=== PATIENT | male | born 1960 | race Two or more races ===

== ENCOUNTER 2024-01-20 13:30 | Outpatient (RCR) | payer MEDICAID, SELFPAY ==
--- NOTE | 2024-01-18 15:14 | PT.ODAYNRPT ---
PT Outpatient Daily Note OP Daily Note Outpatient Physical Therapy Treatment Date: 01/18/24 Visit Reasons: Left hip/Low back pain Subjective: Pt reports low back had improved, no complaints today. Objective: Please see flow sheet for ther ex list. Assessment: Decrease c/o pain during ther ex indicating progress. Plan: Continue with POC. progress per pt tolerance. Length of Time (minutes) of Treatment: 30 Minutes Procedure Charges Therapeutic Exercise 30 minutes: Yes
--- NOTE | 2024-01-20 15:22 | PT.ODAYNRPT ---
PT Outpatient Daily Note OP Daily Note Outpatient Physical Therapy Treatment Date: 01/20/24 Visit Reasons: Left hip/Low back pain Subjective: Pt's back and hip is better and walking more with less pain. Pt is happy is progress so far Objective: Please see flow chart for list of ther ex performed Assessment: progressing with overall mobility and added more hip strengthening exercises with good tolerance Plan: Continue with PT Length of Time (minutes) of Treatment: 30 Minutes Procedure Charges Therapeutic Exercise 30 minutes: Yes
--- NOTE | 2024-02-23 10:13 | PT.ODS1RPT ---
PT OP Progress/Discharge Note Date of Service: 02/23/24 Progress Note/DC Note Progress Note/Discharge Note: DC Note Patient Information Visit Reasons: Left hip/Low back pain Service Discharge Date: 02/23/24 Status Assessment: Pt has been seen for 11 visits (eval + 10 visits). Pt last treated on 01/20/24. Pt has been contact regarding follow up appts without success. At this time Pt will be d/c from care due to non-compliance per attendance policy. Pt did not meet set goals in therapy; thank you for your referrals.
== END 2024-02-12 23:59 | disposition home or self-care (01) ==
LOC: CPTX 13:30
PROVIDERS: PCP Physician Assistant; Referring Provider Physician Assistant; Visit Provider Physician Assistant
DX: M54.50 Low back pain, unspecified (principal); M25.552 Pain in left hip; S79.912D Unspecified injury of left hip, subsequent encounter; W19.XXXD Unspecified fall, subsequent encounter
CPT/HCPCS: 97110

== ENCOUNTER 2024-02-28 12:05 | Emergency (ER) | payer MEDICAID, SELFPAY ==
[2024-02-28 12:06] VITALS: BMI 31.8
[2024-02-28 12:47] VITALS: BP 149/90; PULSE 87; RESP 19; TEMP 37.2; O2SAT 99
--- NOTE | 2024-02-28 12:58 | XR_ITS ---
Examination: CT brain head without contrast. 2-D sagittal coronal reconstructions Date and time of exam:February 28, 2024 1410 hours INDICATIONS: Worsening headaches with nose bleeding beginning 4 days ago CTDI: vol (mGy):52.2 DLP: (mGycm):1071 Technique: Multiple CT axial sections of the brain have been obtained, 5 mm slice thickness. Contrast has not been administered. 2-D sagittal, coronal reconstructions have been obtained Low dose protocols were performed. One or more of the following dose reduction techniques were used; automated exposure control, adjustment of the mA and/or KV according to patient size, use of iterative reconstruction technique. Findings: No significant ventricular enlargement. Intra-axial or extra-axial hemorrhage density is not seen. No mass effect or midline shift Basal cisterns are not remarkable. Fourth ventricle is midline. Cranial vault intact. Impression: Negative for acute hemorrhage, mass effect or midline shift Chronic prominent left maxillary sinusitis Marked hypertrophy inferior nasal turbinates
--- NOTE | 2024-02-28 12:58 | PD.EDRME ---
Rapid Medical Screening Exam RME Arrival date/time: 02/28/24 12:05 63-year-old male presents the emergency department complains of a 4-day history of headache and nosebleeds Chief Complaint: Headache Time Seen by Provider: 02/28/24 12:53 Vital signs: Vital Signs Temperature 99 F 02/28/24 12:47 Pulse Rate 87 02/28/24 12:47 Respiratory Rate 19 02/28/24 12:47 Blood Pressure 149/90 H 02/28/24 12:47 Pulse Oximetry (%) 99 02/28/24 12:47 Oxygen Delivery Method Room Air 02/28/24 12:47
[2024-02-28 13:13] LABS: Basophils # (Auto) 0.1 Thou/mm3 (0.0-0.2); Basophils % (Auto) 0 % (0-2.5); Eosinophils # (Auto) 0.2 Thou/mm3 (0.0-0.5); Eosinophils % (Auto) 2 % (0-10); Hematocrit 46.3 % (41.0-53.0); Hemoglobin 16.2 g/dL (13.5-16.0); Immature Granulocytes % (Auto) 0 % (0-0); Immature Granulocytes Auto 0.04 Thou/mm3 (0.00-0.00); Lymphocytes # (Auto) 3.4 Thou/mm3 (1.0-4.8); Lymphocytes % (Auto) 25 % (10-50); Mean Corpuscular Hemoglobin 29.4 pg (25.0-35.0); Mean Corpuscular Volume 84 fL (80-100); Monocytes # (Auto) 1.1 Thou/mm3 (0.0-0.8); Monocytes % (Auto) 8 % (0-12); Neutrophils # (Auto) 8.7 Thou/mm3 (1.8-7.7); Neutrophils % (Auto) 65 % (37-80); Nucleated Red Blood Cell % 0 /100 WBC (0); Platelet Count 273 Thou/mm3 (140-440); RDW Standard Deviation 36.9 fL (35.1-43.9); Red Blood Count 5.51 Miln/mm3 (4.50-5.90); White Blood Count 13.5 Thou/mm3 (3.8-10.6)
[2024-02-28 13:29] LABS: Partial Thromboplastin Time 28.2 Seconds (22.0-36.0); Prothrombin Time 10.7 Seconds (9.0-12.2)
[2024-02-28 13:35] LABS: Alanine Aminotransferase 33 U/L (10-49); Albumin, Serum 4.6 gm/dL (3.4-4.8); Albumin/Globulin Ratio 1.4 (1.2-2.2); Alkaline Phosphatase 142 U/L (46-116); Anion Gap 9 (7-16); Aspartate Amino Transferase 22 U/L (0-34); BUN/Creatinine Ratio 12 Ratio (12-20); Bilirubin,Total 0.9 mg/dL (0.3-1.2); Blood Urea Nitrogen 13 mg/dL (9-23); Calcium 10.3 mg/dL (8.3-10.6); Calcium (Corrected) 10.3 mg/dL (8.5-10.1); Carbon Dioxide 26.5 mMol/L (20.0-31.0); Chloride 107 mMol/L (98-107); Creatinine (Component) 1.1 mg/dL (0.6-1.3); Estimated Creatinine Clearance 62.5 mL/min (>60); Globulin 3.2 gm/dL (2.3-3.5); Glucose 114 mg/dL (74-106); Osmolality,Calculated 284 (275-295); Potassium 4.1 mMol/L (3.4-5.1); Sodium 142 mMol/L (136-145); Total Protein 7.8 gm/dL (5.7-8.2); eGFR > 60 See Note
[2024-02-28 19:11] VITALS: BP 160/94; PULSE 81; RESP 18; TEMP 36.9; O2SAT 96
--- NOTE | 2024-02-28 19:29 | PD.EDRME ---
Rapid Medical Screening Exam RME Arrival date/time: 02/28/24 12:05 02/28/24 12:05 63-year-old male presents the emergency department complains of a 4-day history of headache and nosebleeds Chief Complaint: Headache Time Seen by Provider: 02/28/24 12:53 Vital signs: Vital Signs Temperature 99 F 02/28/24 12:47 Pulse Rate 87 02/28/24 12:47 Respiratory Rate 19 02/28/24 12:47 Blood Pressure 149/90 H 02/28/24 12:47 Pulse Oximetry (%) 99 02/28/24 12:47 Oxygen Delivery Method Room Air 02/28/24 12:47 RME Narrative: 02/28/24 12:05 63-year-old male presents the emergency department complains of a 4-day history of headache and nosebleeds. Patient has a history of high cholesterol, diabetes, and hypertension coming in with 4 days of 4 days of intermittent nosebleeds. Patient states he was not nose picking. The nosebleed lasted mainly at night when he is ready to go to bed. Patient is also complaining of some left sinus pain patient is also complaining of left eye drainage. Productive cough now for 4 days as well.
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
[2024-02-28] MEDS: AMOXICILLIN/POT CLAV 875 TABLET 1 TAB PO (19:42)
[2024-02-28] MEDS: SALINE NASAL 45 ML BTL 1 SPRAY NASAL (19:42)
== END 2024-02-28 19:48 | disposition home or self-care (01) ==
PROVIDERS: Nurse Practitioner Primary Care; Emergency Provider Emergency Medicine; PCP Family Medicine
DX: J32.0 Chronic maxillary sinusitis (principal)
CPT/HCPCS: 36415; 70450; 80053; 85025; 85610; 85730; 99284; A9270

== ENCOUNTER 2024-04-26 10:37 | Inpatient (IN) | payer MEDICAID, SELFPAY ==
[2024-04-26] VITALS (9 sets, daily range): BP systolic 136–188; BP diastolic 85–104; PULSE 67–87; RESP 12–96; TEMP 36.4–37.4; O2SAT 93–99; BMI 30.9; BMI 31.5
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
[2024-04-26] MEDS: ONDANSETRON INJ 2 MG/ML INJ 2 ML 4 MG IV (11:29)
[2024-04-26] MEDS: MORPHINE SULF INJ 10 MG/ML VIAL 4 MG IVP (11:29)
[2024-04-26 12:00] LABS: Basophils % (Auto) 0 % (0-2.5); Eosinophils # (Auto) 0.2 Thou/mm3 (0.0-0.5); Eosinophils % (Auto) 1 % (0-10); Hematocrit 45.5 % (41.0-53.0); Hemoglobin 15.8 g/dL (13.5-16.0); Immature Granulocytes % (Auto) 1 % (0-0); Lymphocytes # (Auto) 3.4 Thou/mm3 (1.0-4.8); Lymphocytes % (Auto) 32 % (10-50); Mean Corpuscular HGB Conc 34.7 g/dl (31.0-37.0); Mean Corpuscular Volume 84 fL (80-100); Monocytes # (Auto) 0.7 Thou/mm3 (0.0-0.8); Monocytes % (Auto) 7 % (0-12); Neutrophils # (Auto) 6.4 Thou/mm3 (1.8-7.7); Neutrophils % (Auto) 59 % (37-80); Nucleated Red Blood Cell % 0 /100 WBC (0); Platelet Count 240 Thou/mm3 (140-440); RDW Standard Deviation 38.7 fL (35.1-43.9); Red Blood Count 5.44 Miln/mm3 (4.50-5.90); White Blood Count 10.8 Thou/mm3 (3.8-10.6)
[2024-04-26 12:15] LABS: Partial Thromboplastin Time 25.9 Seconds (22.0-36.0); Prothrombin Time 10.7 Seconds (9.0-12.2)
[2024-04-26 12:23] LABS: Alanine Aminotransferase 65 U/L (10-49); Albumin, Serum 4.6 gm/dL (3.4-4.8); Albumin/Globulin Ratio 1.6 (1.2-2.2); Alkaline Phosphatase 137 U/L (46-116); Anion Gap 5 (7-16); Aspartate Amino Transferase 60 U/L (0-34); BUN/Creatinine Ratio 15 Ratio (12-20); Bilirubin,Total 1.3 mg/dL (0.3-1.2); Blood Urea Nitrogen 18 mg/dL (9-23); Calcium 9.8 mg/dL (8.3-10.6); Calcium (Corrected) 9.8 mg/dL (8.5-10.1); Chloride 107 mMol/L (98-107); Creatinine (Component) 1.2 mg/dL (0.6-1.3); Estimated Creatinine Clearance 58.7 mL/min (>60); Globulin 2.9 gm/dL (2.3-3.5); Glucose 128 mg/dL (74-106); Osmolality,Calculated 277 (275-295); Potassium 4.9 mMol/L (3.4-5.1); Sodium 137 mMol/L (136-145); Total Protein 7.5 gm/dL (5.7-8.2); Troponin I < 0.020 ng/mL (0.0-0.045); eGFR > 60 See Note
--- NOTE | 2024-04-26 14:31 | XR_ITS ---
Examination: Abdomen sonogram, Limited Date and time of exam: April 26, 2024 at 1454 hours INDICATIONS: Elevated liver enzymes on laboratory examination today Technique: Real-time tolbert scale transabdominal sonographic images of the upper abdomen obtained. Findings: Absent gallbladder Normal common bile duct 0.3 cm Pancreatic head 3.4 cm Liver 16.6 cm intact fatty infiltration no focal liver lesions or hematoma Normal hepatopedal portal venous flow Patent IVC IMPRESSION: Mild hepatomegaly, fatty liver, no liver laceration or hematoma noted
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
[2024-04-26] MEDS: HYDROmorphone INJ 2 MG/ML VIAL 1 MG IVP (15:54)
[2024-04-26 16:06] LABS: Collection Type, Urine Voided; Squamous Epithelial Cell,Urine 0 /hpf (0-5)
[2024-04-26 16:28] LABS: Bacteria,Urine Rare; Bilirubin,Urine Negative (Negative); Blood,Urine Negative (Negative); Clarity,Urine Clear (Clear/Hazy); Color,Urine Lt-Yellow (Lt Yel-Yel); Glucose, Urine Negative (Negative); Ketones,Urine Negative (Negative); Leukocyte Esterase,Urine Negative (Negative); Nitrite,Urine Negative (Negative); Protein,Urine Trace (Neg - Trace); RBC,Urine 2 /hpf (0-3); Specific Gravity,Urine 1.034 (1.001-1.035); Urobilinogen,Urine Negative mg/dL (0.0-1.0); WBC,Urine 1 /hpf (0-5)
[2024-04-26] MEDS: HYDROcodone/APAP 5/325 TABLET 1 TAB PO (17:12)
[2024-04-26] MEDS: MORPHINE SULF INJ 10 MG/ML VIAL 2 MG IVP (22:37)
[2024-04-27] VITALS (8 sets, daily range): BP systolic 113–141; BP diastolic 72–87; PULSE 71–86; RESP 14–92; TEMP 36.2–36.4; O2SAT 92–96
[2024-04-27] MEDS: MORPHINE SULF INJ 10 MG/ML VIAL 2 MG IVP ×5 (04:54→22:38)
[2024-04-27 05:48] LABS: Basophils % (Auto) 0 % (0-2.5); Eosinophils # (Auto) 0.2 Thou/mm3 (0.0-0.5); Eosinophils % (Auto) 2 % (0-10); Immature Granulocytes % (Auto) 0 % (0-0); Immature Granulocytes Auto 0.04 Thou/mm3 (0.00-0.00); Lymphocytes # (Auto) 2.7 Thou/mm3 (1.0-4.8); Lymphocytes % (Auto) 29 % (10-50); Mean Corpuscular HGB Conc 34.9 g/dl (31.0-37.0); Mean Corpuscular Hemoglobin 29.8 pg (25.0-35.0); Mean Corpuscular Volume 86 fL (80-100); Monocytes # (Auto) 1.1 Thou/mm3 (0.0-0.8); Monocytes % (Auto) 12 % (0-12); Neutrophils # (Auto) 5.4 Thou/mm3 (1.8-7.7); Neutrophils % (Auto) 57 % (37-80); Nucleated Red Blood Cell % 0 /100 WBC (0); Platelet Count 207 Thou/mm3 (140-440); RDW Standard Deviation 40.4 fL (35.1-43.9); Red Blood Count 5.03 Miln/mm3 (4.50-5.90); White Blood Count 9.5 Thou/mm3 (3.8-10.6)
[2024-04-27 06:24] LABS: Alanine Aminotransferase 58 U/L (10-49); Albumin/Globulin Ratio 1.5 (1.2-2.2); Alkaline Phosphatase 132 U/L (46-116); Anion Gap 9 (7-16); Aspartate Amino Transferase 38 U/L (0-34); BUN/Creatinine Ratio 18 Ratio (12-20); Bilirubin,Total 1.6 mg/dL (0.3-1.2); Blood Urea Nitrogen 21 mg/dL (9-23); Calcium 9.3 mg/dL (8.3-10.6); Calcium (Corrected) 9.3 mg/dL (8.5-10.1); Carbon Dioxide 25.1 mMol/L (20.0-31.0); Chloride 105 mMol/L (98-107); Cholesterol 160 mg/dL (132-200); Creatinine (Component) 1.2 mg/dL (0.6-1.3); Estimated Creatinine Clearance 59.2 mL/min (>60); Globulin 2.7 gm/dL (2.3-3.5); Glucose 158 mg/dL (74-106); HDL Cholesterol 40 mg/dL (40-60); LDL Cholesterol,Calculated 84 mg/dL (0-130); Magnesium 1.9 mg/dL (1.6-2.6); Osmolality,Calculated 283 (275-295); Potassium 4.2 mMol/L (3.4-5.1); Sodium 139 mMol/L (136-145); Total Protein 6.7 gm/dL (5.7-8.2); Triglycerides 179 mg/dL (30-150); eGFR > 60 See Note
[2024-04-27 06:43] LABS: Glucose Estimated Average 146 mg/dL (80-131); Hemoglobin A1C 6.7 % Hgb (4.8-6.0)
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
[2024-04-27] MEDS: SENNA TABLET 1 TAB PO (09:39)
[2024-04-27] MEDS: PANTOPRAZOLE 40 MG TABLET PO (09:39)
[2024-04-27] MEDS: cefTRIAXone 1,000 MG in SODIUM CHLORIDE 0.9% (P) 50 ML 100 MG IV (09:40)
[2024-04-27] MEDS: ENOXAPARIN SOD INJ 40 MG/0.4 ML SYRINGE SC (09:40)
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
--- NOTE | 2024-04-27 14:43 | PC.SS ---
SS follow up note; Possible discharge tomorrow.
[2024-04-27] MEDS: HYDROcodone/APAP 5/325 TABLET 1 TAB PO (21:23)
[2024-04-28] VITALS: BP 123/75; PULSE 66; RESP 18; TEMP 36.2; O2SAT 91
[2024-04-28 04:00] VITALS: BP 116/79; PULSE 66; RESP 15; TEMP 36.1; O2SAT 94
[2024-04-28 04:58] VITALS: PULSE 69; RESP 20; O2SAT 92
[2024-04-28 05:52] LABS: Basophils % (Auto) 0 % (0-2.5); Eosinophils # (Auto) 0.4 Thou/mm3 (0.0-0.5); Eosinophils % (Auto) 3 % (0-10); Hematocrit 42.5 % (41.0-53.0); Hemoglobin 14.7 g/dL (13.5-16.0); Immature Granulocytes % (Auto) 1 % (0-0); Immature Granulocytes Auto 0.05 Thou/mm3 (0.00-0.00); Lymphocytes # (Auto) 3.3 Thou/mm3 (1.0-4.8); Lymphocytes % (Auto) 31 % (10-50); Mean Corpuscular HGB Conc 34.6 g/dl (31.0-37.0); Mean Corpuscular Hemoglobin 29.9 pg (25.0-35.0); Mean Corpuscular Volume 87 fL (80-100); Monocytes # (Auto) 1.2 Thou/mm3 (0.0-0.8); Monocytes % (Auto) 12 % (0-12); Neutrophils # (Auto) 5.6 Thou/mm3 (1.8-7.7); Neutrophils % (Auto) 53 % (37-80); Nucleated Red Blood Cell % 0 /100 WBC (0); Platelet Count 206 Thou/mm3 (140-440); RDW Standard Deviation 40.6 fL (35.1-43.9); Red Blood Count 4.91 Miln/mm3 (4.50-5.90); White Blood Count 10.5 Thou/mm3 (3.8-10.6)
[2024-04-28 06:20] LABS: Alanine Aminotransferase 48 U/L (10-49); Albumin, Serum 4.1 gm/dL (3.4-4.8); Albumin/Globulin Ratio 1.5 (1.2-2.2); Alkaline Phosphatase 135 U/L (46-116); Anion Gap 8 (7-16); Aspartate Amino Transferase 29 U/L (0-34); BUN/Creatinine Ratio 17 Ratio (12-20); Bilirubin,Total 1.7 mg/dL (0.3-1.2); Blood Urea Nitrogen 22 mg/dL (9-23); Calcium 9.5 mg/dL (8.3-10.6); Calcium (Corrected) 9.5 mg/dL (8.5-10.1); Carbon Dioxide 27.1 mMol/L (20.0-31.0); Chloride 103 mMol/L (98-107); Creatinine (Component) 1.3 mg/dL (0.6-1.3); Estimated Creatinine Clearance 54.7 mL/min (>60); Globulin 2.8 gm/dL (2.3-3.5); Glucose 141 mg/dL (74-106); Osmolality,Calculated 280 (275-295); Potassium 4.1 mMol/L (3.4-5.1); Sodium 138 mMol/L (136-145); Thyroid Stimulating Hormone 3.09 uIU/mL (0.55-4.78); Total Protein 6.9 gm/dL (5.7-8.2); eGFR > 60 See Note
[2024-04-28 08:00] VITALS: BP 137/89; PULSE 70; RESP 19; TEMP 36.3; O2SAT 94
[2024-04-28] MEDS: ENOXAPARIN SOD INJ 40 MG/0.4 ML SYRINGE SC (08:26)
[2024-04-28] MEDS: PANTOPRAZOLE 40 MG TABLET PO (08:26)
[2024-04-28] MEDS: cefTRIAXone 1,000 MG in SODIUM CHLORIDE 0.9% (P) 50 ML 100 MG IV (08:26)
[2024-04-28] MEDS: SENNA TABLET 1 TAB PO (08:26)
[2024-04-28] MEDS: HYDROcodone/APAP 5/325 TABLET 1 TAB PO (08:26)
[2024-04-28 10:52] VITALS: PULSE 77; RESP 14; O2SAT 94
--- NOTE | 2024-04-28 11:44 | PC.SS ---
SS was contacted by Guido from PT that that patient was needing a Rollator Walker, SS sent DME request through [employer]. [facility] will contact patient for delivery.
[2024-04-28 12:00] VITALS: BP 137/87; PULSE 80; RESP 18; TEMP 36.6; O2SAT 93
[2024-04-28] MEDS: KETOROLAC INJ 30 MG/ML VIAL IVP (13:01)
[2024-04-28] MEDS: LACTULOSE SYRUP 20 GM/30 ML UDC PO (13:01)
--- NOTE | 2024-04-28 14:10 | PC.PT ---
PT eval only. Patient is at his PLOF. Patient is limited currently by his pain. Patient is clear to ambulate in his room and to the bathroom on his own. RN made aware.
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
== END 2024-04-28 16:45 | disposition home or self-care (01) | DRG 135 ==
LOC: SERX 15:34 → SERHOLD 16:09 → S3SX 21:23
PROVIDERS: Nurse Practitioner Family; Admitting Provider Student in an Organized Health Care Education/Training Program; Emergency Provider Emergency Medicine; PCP Family Medicine; Visit Provider Student in an Organized Health Care Education/Training Program
DX: S22.43XA Multiple fractures of ribs, bilateral, initial encounter for closed fracture (principal); E78.5 Hyperlipidemia, unspecified; Y92.410 Unspecified street and highway as the place of occurrence of the external cause; V43.52XA Car driver injured in collision with other type car in traffic accident, initial encounter; I16.0 Hypertensive urgency; I10 Essential (primary) hypertension; E11.9 Type 2 diabetes mellitus without complications; N39.0 Urinary tract infection, site not specified; R16.0 Hepatomegaly, not elsewhere classified; K76.0 Fatty (change of) liver, not elsewhere classified; N40.0 Benign prostatic hyperplasia without lower urinary tract symptoms; Z90.49 Acquired absence of other specified parts of digestive tract
CPT/HCPCS: 36415; 71260; 73590; 74177; 76705; 80053; 80061; 81001; 83036; 83735; 84443; 84484; 85025; 85610; 85730; 87086; 87811; 94664; 97162; A4649; J0696; J1650; J1885; J2270; J2405; J3490; J7050; Q9967; A9270

== ENCOUNTER 2024-05-24 19:34 | Emergency (ER) | payer MEDICAID, SELFPAY ==
[2024-05-24 20:30] VITALS: BP 149/83; PULSE 67; RESP 20; TEMP 36.7; O2SAT 96
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
== END 2024-05-24 22:56 | disposition home or self-care (01) ==
PROVIDERS: Emergency Provider Emergency Medicine
DX: S22.43XA Multiple fractures of ribs, bilateral, initial encounter for closed fracture (principal); X58.XXXA Exposure to other specified factors, initial encounter
CPT/HCPCS: 99281

== ENCOUNTER 2024-07-19 12:15 | Day surgery (SDC) | payer MEDICAID, SELFPAY ==
[2024-07-18 10:38] VITALS: BMI 31.1
[2024-07-19] VITALS (11 sets, daily range): BP systolic 123–183; BP diastolic 84–125; PULSE 60–75; RESP 15–24; TEMP 36.3–37.1; O2SAT 94–98; BMI 28.9
[2024-07-19] MEDS: RINGERS LACTATED 1000 ML 1,000 ML 100 ML IV (13:15)
[2024-07-19] MEDS: fentaNYL CIT INJ 50 mCg/ML AMP 2ML (ASD USE ONLY) IV (13:20)
[2024-07-19] MEDS: DiphenhydrAMINE INJ 50 MG/ML VIAL 25 MG IV (13:25)
[2024-07-19] MEDS: MIDAZOLAM INJ 1 MG/ML VIAL 2 ML (ASD USE ONLY) 2 MG IV (13:25)
--- NOTE | 2024-07-19 14:25 | SUR.PHASEII ---
1340 pt to pacu via gurney, drowsy arousable with tactile stimuli, VSS will monitor 1425 pt able to sit on side of bed and ambulate to bathroom, able to void, states stomach feels good 1430 patient able to dress self
== END 2024-07-19 14:40 | disposition home or self-care (01) ==
PROVIDERS: PCP Family Medicine; Referring Provider Surgery; Visit Provider Surgery
PROC: 0DBE8ZX Excision of Large Intestine, Via Natural or Artificial Opening Endoscopic, Diagnostic (ICD-10-PCS; CPT 45380; principal; 2024-07-19 13:00)
DX: Z12.11 Encounter for screening for malignant neoplasm of colon (principal)
CPT/HCPCS: 45378; J1200; J2250; J3010; J7120

== ENCOUNTER 2024-12-29 09:54 | Emergency (ER) | payer MEDICAID, SELFPAY ==
[2024-12-29 10:03] VITALS: BP 149/94; PULSE 72; RESP 18; TEMP 37.1; O2SAT 98; BMI 27.9
--- NOTE | 2024-12-29 10:11 | PD.EDRME ---
Rapid Medical Screening Exam REPLACED BY [facility] Arrival date/time: 12/29/24 09:54 64-year-old male with medical history significant for diabetes presents to the emergency department of complaints of frequent urination as well as diarrhea Chief Complaint: Nausea/Vomiting/Diarrhea Vital signs: Vital Signs Temperature 98.7 F 12/29/24 10:03 Pulse Rate 72 12/29/24 10:03 Respiratory Rate 18 12/29/24 10:03 Blood Pressure 149/94 H 12/29/24 10:03 Pulse Oximetry (%) 98 12/29/24 10:03 Oxygen Delivery Method Room Air 12/29/24 10:03
[2024-12-29 10:39] LABS: Base Excess, Venous -1 (-3-3); Basophils # (Auto) 0.1 Thou/mm3 (0.0-0.2); Basophils % (Auto) 1 % (0-2.5); Eosinophils # (Auto) 0.2 Thou/mm3 (0.0-0.5); Eosinophils % (Auto) 2 % (0-10); Hematocrit 45.8 % (41.0-53.0); Hemoglobin 15.8 g/dL (13.5-16.0); Immature Granulocytes Auto 0.03 Thou/mm3 (0.00-0.00); Lymphocytes # (Auto) 2.8 Thou/mm3 (1.0-4.8); Lymphocytes % (Auto) 26 % (10-50); Mean Corpuscular HGB Conc 34.5 g/dl (31.0-37.0); Mean Corpuscular Hemoglobin 29.5 pg (25.0-35.0); Mean Corpuscular Volume 86 fL (80-100); Monocytes # (Auto) 0.9 Thou/mm3 (0.0-0.8); Monocytes % (Auto) 8 % (0-12); Neutrophils # (Auto) 7.0 Thou/mm3 (1.8-7.7); Neutrophils % (Auto) 64 % (37-80); Nucleated Red Blood Cell # 0.00 Thou/mm3 (0.00-0.00); Nucleated Red Blood Cell % 0 /100 WBC (0); O2 Saturation, Venous 65 % (96-97); PCO2, Venous 41 mmHg (36-56); PO2, Venous 33 mmHg (15-58); Platelet Count 189 Thou/mm3 (140-440); RDW Standard Deviation 36.7 fL (35.1-43.9); Red Blood Count 5.35 Miln/mm3 (4.50-5.90); White Blood Count 10.9 Thou/mm3 (3.8-10.6); pH, Venous 7.38 (7.33-7.66)
[2024-12-29 10:45] LABS: Beta Hydroxybutyrate 0.7 mmol/L (<0.6)
[2024-12-29 11:02] LABS: Alanine Aminotransferase 92 U/L (10-49); Albumin, Serum 4.5 gm/dL (3.4-4.8); Albumin/Globulin Ratio 1.6 (1.2-2.2); Alkaline Phosphatase 167 U/L (46-116); Anion Gap 11 (7-16); Aspartate Amino Transferase 71 U/L (0-34); BUN/Creatinine Ratio 8 Ratio (12-20); Bilirubin,Total 1.2 mg/dL (0.3-1.2); Blood Urea Nitrogen 11 mg/dL (9-23); Calcium 9.4 mg/dL (8.3-10.6); Calcium (Corrected) 9.4 mg/dL (8.5-10.1); Carbon Dioxide 23.0 mMol/L (20.0-31.0); Chloride 105 mMol/L (98-107); Creatinine (Component) 1.3 mg/dL (0.6-1.3); Estimated Creatinine Clearance 56.6 mL/min (>60); Globulin 2.8 gm/dL (2.3-3.5); Glucose 301 mg/dL (74-106); Lipase 53 U/L (12-53); Osmolality,Calculated 287 (275-295); Potassium 4.3 mMol/L (3.4-5.1); Sodium 139 mMol/L (136-145); Total Protein 7.3 gm/dL (5.7-8.2); eGFR > 60 See Note
[2024-12-29 11:13] LABS: Collection Type, Urine Clean Catch
[2024-12-29 11:27] LABS: Bilirubin,Urine Negative (Negative); Blood,Urine Negative (Negative); Clarity,Urine Clear (Clear/Hazy); Color,Urine Yellow (Lt Yel-Yel); Culture Indicated,Urine Not Indicated; Glucose, Urine 4+ (Negative); Ketones,Urine 2+ (Negative); Leukocyte Esterase,Urine Negative (Negative); Nitrite,Urine Negative (Negative); PH,Urine 5.5 (5.0-7.0); Protein,Urine 1+ (Neg - Trace); RBC,Urine 3 /hpf (0-3); Specific Gravity,Urine 1.045 (1.001-1.035); Squamous Epithelial Cell,Urine 1 /hpf (0-5); Urobilinogen,Urine Negative mg/dL (0.0-1.0); WBC,Urine 3 /hpf (0-5)
[2024-12-29 12:52] VITALS: BP 148/96; PULSE 86; RESP 16; TEMP 36.9; O2SAT 99
--- NOTE | 2024-12-29 13:09 | XR_ITS ---
Examination: CT abdomen and pelvis without contrast. Coronal 3-D reconstructions. Sagittal 2-D reconstructions. Date and time of exam: December 29, 2024, 1413 hours, comparison April 26, 2024 INDICATIONS: Lower abdominal pain and diarrhea beginning 5 days ago CTDI: vol (mGy): 8.1 DLP: (mGycm): 506 Technique: Axial images of the abdomen have been obtained, 3 mm slice thickness Intravenous contrast material has not been administered. Low dose protocols were performed. One or more of the following dose reduction techniques were used; automated exposure control, adjustment of the mA and/or KV according to patient size, use of iterative reconstruction technique. Findings: No focal liver or splenic lesions Absent gallbladder No extrahepatic biliary tract dilatation Normal pancreas No adrenal mass Parapelvic cysts Perinephric stranding No renal or ureteral calculi, no hydronephrosis Aorta normal size Normal appendix No bowel obstruction Scattered colonic diverticulosis Prostatomegaly, transverse dimension 5.3 cm No bladder mass or bladder calculi Bilateral fat-containing inguinal hernias Prominent osteopenia with chronic osteoporotic compression T12 IMPRESSION: Normal pancreas. Perinephric stranding, consider urinary tract infection Normal appendix No bowel obstruction or nonspecific colitis pattern, negative for diverticulitis Moderate prostatomegaly
--- NOTE | 2024-12-29 13:11 | EDNOTE_ITS ---
ED General RME/HPI General Chief complaint: Nausea/Vomiting/Diarrhea Stated complaint: Diarrhea X 5 days, Blood sugar high Time Seen by Provider: 12/29/24 11:30 Arrival date/time: 12/29/24 09:54 CC: Lower abdominal pain with mucousy diarrhea also complaining of numb while urinating increased urinary frequency HPI ongoing for the past 8 days no prior history of similar events. Referred by PCP for further wake up. Patient denies fever chest pain shortness of breath difficulty breathing. All bowel movements have been mucousy in the past 5 days. Denies any antibiotics in the last 3 months. No foreign travel. RME / HPI RME / HPI narrative: 12/29/24 09:54 64-year-old male with medical history significant for diabetes presents to the emergency department of complaints of frequent urination as well as diarrhea Related Data Home Medications ?Medication ?Instructions ?Recorded ?Confirmed atorvastatin 40 mg tablet 40 mg PO .qhs 04/26/2407/19 acetaminophen 500 mg tablet 500 mg PO Q6H PRN pain 10/0607/19/24 celecoxib 100 mg capsule 100 mg PO QDAY 07/19/24 0510/06 Previous Rx's ?Medication ?Instructions ?Recorded hydrocodone 5 mg-acetaminophen 325 1 tab PO BID PRN pa in #10 tabs 04/28/24 mg tablet Held on 07/19/24. Instructions: Resume on 07/20/24. Allergies Allergy/AdvReac Type Severity Reaction Status Date / Time No Known Allergies Allergy Verified 12/29/24 09:59 Review of Systems Review of Systems Narrative Review of Systems: GEN: No fever, no chills, no weight loss EYES: No discharge, no visual changes, no pain HEENT: No ear pain, no congestion, no sore throat PULM: No shortness of breath, no cough, no congestion CV: No chest pain, no dyspnea on exertion, no palpitations GI: No nausea, no vomiting, + diarrhea, + pain, no constipation : No frequency, no urgency, no dysuria MUSC/SKEL: No joint pain, no back pain SKIN: No rash PSYCH: No hallucinations, no depression HEME/LYMPH: No easy bleeding or bruising tendencies NEURO: No weakness, no headache Past Medical History Past Medical History NEUROLOGIC: Positive Neurological Disorders and Head Trauma; Negative Seizures CARDIAC: Positive Hypercholesterolemia and Hypertension; Negative Cardiac Disorders or Congestive Heart Failure RESPIRATORY: Negative Chronic Obstructive Pulmonary Disease (COPD), Asthma or Bronchitis GASTROINTESTINAL: Positive Gastrointestinal Disorders, Gall Bladder Disease, Gastrointestinal Bleed and Crohn's Disease; Negative Hepatitis or Gastroesophageal Reflux Disease GENITOURINARY: Positive Genitourinary Disorders and Kidney Stones; Negative Renal Disease MUSCULOSKELETAL: Negative Musculoskeletal Disorders or Fractures ENT: Positive Head Trauma ENDOCRINE: Negative Endocrine Disorders, Diabetes Mellitus Type 1, Diabetes Mellitus Type 2 or Hyperthyroidism HEMATOLOGIC: Negative Blood Disorders or Sickle Cell Disease PSYCHO/SOCIAL: Negative Depression or Anxiety OTHER HISTORY: Negative Hospitalization, Falls, Blood Transfusions, Blood Transfusion Reaction, Anesthesia Reactions, Chicken Pox, Measles, Mumps or Cancer Family History FAMILY HISTORY: Positive Family Cancer; Negative Family Cardiac Disorders Surgical History SURGICAL: Negative Cardiac Surgery, Tonsillectomy, Joint Replacement or Vasectomy Social History SMOKING STATUS: Never smoker ED Exam Narrative Physical exam: [General: Obese not in any acute distress Head normocephalic HEENT: Within acceptable limits Neck is supple nontender Chest equal chest rise nontender to palpation Respiratory: Clear to auscultation no wheezes crackles or rubs CV: Rate rhythm is regular no murmurs rubs or clicks Abdomen is distended secondary to body habitus soft, diffuse low center abdominal pain with palpation no reflexive guarding no rebound tenderness no upper quadrant pain with palpation. No masses appreciated. Back: No CVA tenderness no spinous process tenderness from cervical spine thoracic and lumbar spine Skin: Intact no petechiae rash induration ulceration or crepitus Extremities: Moving all extremity against resistance cap refill less than 2 seconds neurosensory intact Neuro: Awake alert oriented x3 Glascow coma 15 no focal deficits] Course Course Course Narrative: After 5 units of insulin subcu the patient's blood sugars dropped from 4 1-3 96 will give him an additional [address] is negative for any acute finding this time patient will be discharged home with hyperglycemia and abdominal pain follow-up with your primary care doctor. Quality Measures none Orders Category Date Time Status Bedside Blood Glucose NOW Care 12/29/24 10:[address] abdomen pelvis wo con Stat Exams 12/29/24 13:09 Completed Beta Hydroxybutyrate Stat Lab 12/29/24 10:24 Completed CBC Stat Lab 12/29/24 10:24 Completed Comprehensive Metabolic Panel Stat Lab 12/29/24 10:24 Completed Lipase Stat Lab 12/29/24 10:24 Completed UA, C/S IF [Urinalysis, C/S if Indicated] Stat Lab 12/29/24 11:10 Completed VBG [Venous Blood Gas] Stat Lab 12/29/24 10:24 Completed Insulin Regular Med 12/29/24 13:33 Discontinued 5 unit SC X1 ONE Insulin Regular Med 12/29/24 15:10 Discontinued 5 unit SC X1 ONE Vital Signs Vital signs: Vital Signs Temperature 98.7 F 12/29/24 10:03 Pulse Rate 72 12/29/24 10:03 Respiratory Rate 18 12/29/24 10:03 Blood Pressure 149/94 H 12/29/24 10:03 Pulse Oximetry (%) 98 12/29/24 10:03 Oxygen Delivery Method Room Air 12/29/24 10:03 Discharge Plan Plan Patient Disposition: HOME (Self Care) Patient condition on transfer: Stable Prescriptions/Referrals Prescriptions/Med Rec: No Action atorvastatin 40 mg tablet 40 mg PO .qhs Patient Comments: TOME 1 TABLETA POR V A ORAL TODOS LOS D AT NOCHE hydrocodone-acetaminophen 5-325 mg tablet 1 tab PO BID MDD 2 PRN (Reason: pain) Qty: 10 0RF celecoxib 100 mg capsule 100 mg PO QDAY Patient Comments: TOME 1 C PSULA POR V A ORAL DOS VECES AL D A POR 7 D CUANDO SEA NECESARIO acetaminophen 500 mg tablet 500 mg PO Q6H PRN (Reason: pain) Referrals: Mai Pfeiffer PA-C [Primary Care Provider] - In 1 week Problem List Clinical Impression: Abdominal pain, Hyperglycemia, Diarrhea Patient/Caregiver Discharge Instructions Education Materials: Abdominal Pain, High Blood Sugar (Hyperglycemia) Additional Instructions: Monitor your sugars closely if they are worsening follow-up with your primary care doctor for adjustment in your diabetes medicine. Print Language: Macedonian Stand Alone Forms: Mar Award Info., Work/School Release, Patient Portal Info Letter NGUYEN/HETAL Supervising Physician NGUYEN/HETAL Supervising Physician: Marek Brar ENP [facility] Clinical Information Provided by: patient Medical Records reviewed [facility] Meds/Rx considered, not ordered None Labs/Rad/Tests considered, not ordered None Chronic Illness/Social Conditions Explain: Diabetes hypertension hyperlipidemia EKG EKG not done Labs Labs: interpreted by ak Lab(s) Interpretation(s): CBC shows no leukocytosis anemia thrombocytopenia VBG shows pH of 7.38 pCO2 41 pO2 of 33 base deficit of 1. CMP shows glucose level of 301 no other significant electrolyte imbalances renal impairment, T. bili elevation. AST 71 ALT 92 alk phos at 167. Lipase of 53. Beta hydroxybutyrate at 0.7. Urine has a high spec gravity of 1.0451+ protein 4+ glucose 2+ ketones no other significant finding. Medication Administration(s) Medication Administration History Discontinued Medications Insulin Human Regular (Insulin Hum Regular 1 Unit/0.01 Ml (Per Unit)) 5 unit SC X1 ONE Stop: 12/29/24 13:34 Last Admin: 12/29/24 13:38 Dose: 5 unit Documented By: BD Co-signed By: TYESHA Insulin Human Regular (Insulin Hum Regular 1 Unit/0.01 Ml (Per Unit)) 5 unit SC X1 ONE Stop: 12/29/24 15:11 Last Admin: 12/29/24 15:15 Dose: 5 unit Documented By: BD Co-signed By: CHIKA
[2024-12-29] MEDS: INSULIN HUM REGULAR 1 UNIT/0.01 ML (PER UNIT) 5 UNIT SC ×2 (13:38→15:15)
[2024-12-29 14:39] VITALS: BP 120/78; PULSE 68; RESP 16; TEMP 36.9; O2SAT 96
[2024-12-29 15:57] VITALS: BP 132/86; PULSE 69; RESP 16; TEMP 36.7; O2SAT 98
== END 2024-12-29 16:02 | disposition home or self-care (01) ==
PROVIDERS: Nurse Practitioner Primary Care; Emergency Provider Family Medicine; PCP Physician Assistant
DX: E11.65 Type 2 diabetes mellitus with hyperglycemia (principal); R19.7 Diarrhea, unspecified
CPT/HCPCS: 36415; 74176; 80053; 81001; 82010; 82803; 83690; 85025; 99283; J1815

== ENCOUNTER 2025-01-03 16:58 | Emergency (ER) | payer MEDICAID, SELFPAY ==
[2025-01-03 17:14] VITALS: BP 155/81; PULSE 80; RESP 20; TEMP 36.7; O2SAT 95
--- NOTE | 2025-01-03 17:24 | PD.EDRME ---
Rapid Medical Screening Exam RME Arrival date/time: 01/03/25 16:58 64-year-old male presents to the emergency department today for complaint of elevated blood sugar. Chief Complaint: Recheck/Abnormal Lab/Rx Time Seen by Provider: 01/03/25 17:15 Vital signs: Vital Signs Temperature 98.0 F 01/03/25 17:14 Pulse Rate 80 01/03/25 17:14 Respiratory Rate 20 01/03/25 17:14 Blood Pressure 155/81 H 01/03/25 17:14 Pulse Oximetry (%) 95 01/03/25 17:14 Oxygen Delivery Method Room Air 01/03/25 17:14
[2025-01-03 17:46] LABS: Base Excess, Venous 1 (-3-3); Basophils # (Auto) 0.0 Thou/mm3 (0.0-0.2); Basophils % (Auto) 0 % (0-2.5); Eosinophils # (Auto) 0.2 Thou/mm3 (0.0-0.5); Eosinophils % (Auto) 1 % (0-10); Hematocrit 41.9 % (41.0-53.0); Hemoglobin 14.7 g/dL (13.5-16.0); Immature Granulocytes Auto 0.04 Thou/mm3 (0.00-0.00); Lymphocytes # (Auto) 3.1 Thou/mm3 (1.0-4.8); Lymphocytes % (Auto) 29 % (10-50); Mean Corpuscular HGB Conc 35.1 g/dl (31.0-37.0); Mean Corpuscular Hemoglobin 29.9 pg (25.0-35.0); Mean Corpuscular Volume 85 fL (80-100); Monocytes # (Auto) 1.0 Thou/mm3 (0.0-0.8); Monocytes % (Auto) 10 % (0-12); Neutrophils # (Auto) 6.3 Thou/mm3 (1.8-7.7); Neutrophils % (Auto) 59 % (37-80); Nucleated Red Blood Cell # 0.00 Thou/mm3 (0.00-0.00); Nucleated Red Blood Cell % 0 /100 WBC (0); O2 Saturation, Venous 56 % (96-97); PCO2, Venous 49 mmHg (36-56); PO2, Venous 31 mmHg (15-58); Platelet Count 246 Thou/mm3 (140-440); RDW Standard Deviation 35.9 fL (35.1-43.9); Red Blood Count 4.92 Miln/mm3 (4.50-5.90); White Blood Count 10.7 Thou/mm3 (3.8-10.6); pH, Venous 7.36 (7.33-7.66)
[2025-01-03 17:48] LABS: Beta Hydroxybutyrate 0.2 mmol/L (<0.6)
[2025-01-03 18:05] LABS: Glucose Estimated Average 272 mg/dL (80-131); Hemoglobin A1C 11.1 % Hgb (4.8-6.0)
[2025-01-03 18:12] LABS: Alanine Aminotransferase 70 U/L (10-49); Albumin, Serum 4.5 gm/dL (3.4-4.8); Albumin/Globulin Ratio 1.6 (1.2-2.2); Alkaline Phosphatase 150 U/L (46-116); Anion Gap 9 (7-16); Aspartate Amino Transferase 36 U/L (0-34); BUN/Creatinine Ratio 10 Ratio (12-20); Bilirubin,Total 0.8 mg/dL (0.3-1.2); Blood Urea Nitrogen 17 mg/dL (9-23); Calcium 9.6 mg/dL (8.3-10.6); Calcium (Corrected) 9.6 mg/dL (8.5-10.1); Carbon Dioxide 26.2 mMol/L (20.0-31.0); Chloride 100 mMol/L (98-107); Creatinine (Component) 1.7 mg/dL (0.6-1.3); Globulin 2.8 gm/dL (2.3-3.5); Osmolality,Calculated 295 (275-295); Potassium 4.8 mMol/L (3.4-5.1); Sodium 135 mMol/L (136-145); Total Protein 7.3 gm/dL (5.7-8.2); eGFR 44 See Note
[2025-01-03 18:17] LABS: Glucose 529 mg/dL (74-106)
[2025-01-03 18:53] LABS: Collection Type, Urine Clean Catch; Squamous Epithelial Cell,Urine 0 /hpf (0-5); WBC,Urine 0 /hpf (0-5)
[2025-01-03 19:28] VITALS: BP 156/93; PULSE 65; RESP 20; TEMP 37.1; O2SAT 96
[2025-01-03 19:28] LABS: Amorphous Crystals,Urine Present (Absent); Bilirubin,Urine Negative (Negative); Blood,Urine Negative (Negative); Clarity,Urine Clear (Clear/Hazy); Color,Urine Colorless (Lt Yel-Yel); Culture Indicated,Urine Not Indicated; Glucose, Urine 4+ (Negative); Ketones,Urine Negative (Negative); Leukocyte Esterase,Urine Negative (Negative); Nitrite,Urine Negative (Negative); PH,Urine 6.5 (5.0-7.0); Protein,Urine Negative (Neg - Trace); RBC,Urine 1 /hpf (0-3); Specific Gravity,Urine 1.035 (1.001-1.035); Urobilinogen,Urine Negative mg/dL (0.0-1.0)
[2025-01-03] MEDS: SODIUM CHLORIDE 0.9% 1000 ML 1,000 ML 999 ML IV (19:35)
--- NOTE | 2025-01-03 19:55 | PD.EDRECHK ---
ED Recheck Abnl Lab Rx-RME/HPI General Chief Complaint: Recheck/Abnormal Lab/Rx Stated Complaint: Blood sugar is high Time Seen by Provider: 01/03/25 17:15 Arrival date/time: 01/03/25 16:58 Limitations: no limitations RME / HPI RME / HPI narrative: 01/03/25 16:58 64-year-old male presents to the emergency department today for complaint of elevated blood sugar. Patient is a 64-year-old female with medical history notable for diabetes, hyperlipidemia and send emergency department with concerns for elevated blood glucose. Patient denies fevers, chills, nausea, vomiting, chest pain, abdominal pain, dysuria, hematuria, melena, bloody stools. Patient states that he was recently started on shots for his diabetes however since then his blood glucose has not been contained Related Data Home Medications ?Medication ?Instructions ?Recorded ?Confirmed atorvastatin 40 mg tablet 40 mg PO .qhs 04/26/24 07/19/24 acetaminophen 500 mg tablet 500 mg PO Q6H PRN pain 07/19/24 07/19/24 celecoxib 100 mg capsule 100 mg PO QDAY 07/19/24 07/19/24 Previous Rx's ?Medication ?Instructions ?Recorded hydrocodone 5 mg-acetaminophen 325 1 tab PO BID PRN pain #10 tabs 04/28/24 mg tablet Held on 07/19/24. Instructions: Resume on 07/20/24. Allergies Allergy/AdvReac Type Severity Reaction Status Date / Time No Known Allergies Allergy Verified 01/03/25 17:02 ED Exam General Limitations: Present no limitations General appearance: Present alert Head Head exam: Present atraumatic Eye Eye exam: Present normal appearance and PERRL ENT ENT exam: Present normal exam and normal oropharynx Neck Neck exam: Present normal inspection and full ROM Chest Chest inspection: Present normal inspection Respiratory Respiratory exam: Present normal lung sounds bilaterally; Absent respiratory distress, wheezes or stridor Cardiovascular Cardiovascular exam: Present regular rate and normal rhythm Abdominal Exam Abdominal exam: Present soft; Absent distention, tenderness or guarding Extremities Exam Extremities exam: Present normal inspection Neurological Exam Neurological exam: Present alert and other Psychiatric Psychiatric exam: Present normal affect and normal mood Skin Skin exam: Present warm, dry and intact Course Quality Measures none Orders Category Date Time Status A1C [Glycohemoglobin w (eAG)] Stat Lab 01/03/25 17:35 Completed Beta Hydroxybutyrate Stat Lab 01/03/25 17:35 Completed CBC Stat Lab 01/03/25 17:35 Completed Comprehensive Metabolic Panel Stat Lab 01/03/25 17:35 Completed UA, C/S IF [Urinalysis, C/S if Indicated] Stat Lab 01/03/25 18:26 Completed VBG [Venous Blood Gas] Stat Lab 01/03/25 17:35 Completed Insulin Regular Med 01/03/25 19:54 Discontinued 5 unit IV X1 ONE Ringers Lactated 1000 ml [Lactated Ringers] 1,000 ml Med 01/03/25 19:54 Discontinued IV 999 mls/hr Sodium Chloride 0.9% 1000 ml [Ns] 1,000 ml Med 01/03/25 17:20 Discontinued IV 999 mls/hr Vital Signs Vital signs: Vital Signs Temperature 98.0 F 01/03/25 17:14 Pulse Rate 80 01/03/25 17:14 Respiratory Rate 20 01/03/25 17:14 Blood Pressure 155/81 H 01/03/25 17:14 Pulse Oximetry (%) 95 01/03/25 17:14 Oxygen Delivery Method Room Air 01/03/25 17:14 Recheck / Abnormal Lab / Rx MDM Narrative MDM Narrative:: Patient is a 64yo male present emergency department with concerns for elevated blood glucose. Vital signs and exam as listed. Prior provider evaluated patient. Ordered labs. With evidence of elevated blood glucose at 29, normal bicarbonate, patient with a creatinine of 1.7 previously normal. BUN normal. No significant electrolyte derangements. Patient hemoglobin A1c is 11, normal anion gap, normal bicarbonate, patient is not in DKA. Provided patient with a liter of fluids, rechecked patient's blood glucose has downtrended. On multiple reevaluations patient hemodynamically stable not in distress. Will discharge to home with close return precautions follow-up with his primary care doctor. Advised him extensively on the importance of glucose control, he will discuss this with his provider. Also advised on lifestyle modification Patient data External records reviewed:: [facility] previous records Clinical information provided by:: patient Social determinants that could affect healthcare access:: none Patient has the following chronic illnesses:: See MDM How is presenting disease/condition affected by chronic disease/condition?: exacerbated by Evaluation data The following diagnostics were reviewed and interpreted by me:: lab results Lab and/or radiology exams considered but not ordered:: None Interpretation Summary: See above Medications / Prescriptions Medications or Prescriptions considered but not ordered:: None Medication administrations:: Medication Administration History Discontinued Medications Sodium Chloride (Ns) 1,000 mls @ 999 mls/hr IV .Q1H1M ONE Stop: 01/03/25 18:20 Last Infusion: 01/03/25 21:48 Dose: Infused Documented By: Admin: 01/03/25 19:35 Dose: 999 mls/hr Documented By: RICH Lactated Ringer's (Lactated Ringers) 1,000 mls @ 999 mls/hr IV .Q1H1M ONE Stop: 01/03/25 20:54 Last Admin: 01/03/25 20:48 Dose: Not Given Documented By: RICH Non-Admin Reason: Cancelled by Provider Insulin Human Regular (Insulin Hum Regular 1 Unit/0.01 Ml (Per Unit)) 5 unit IV X1 ONE Stop: 01/03/25 19:55 Last Admin: 01/03/25 20:48 Dose: Not Given Documented By: RICH Non-Admin Reason: Cancelled by Provider See above Consultations Consultation(s) initiated? (list below): No Diagnosis Recheck Differential Diagnosis: other (See MDM) Most likely diagnosis given after review of the tests above:: Hyperglycemia, acute kidney injury Admission Indicated Admission indicated?: not indicated Admission Request Was there a request for admission?: No Disposition Plan Disposition Plan: Discharge Discharge Attestation Discharge Attestation: The patient and all family members were given an opportunity to ask questions and understood the discharge instructions. Discharge instructions specifically effects, indications for sooner follow up or return to the emergency department, and the expected course of current diagnosis. Patient condition: Stable Discharge Plan Plan Patient Disposition: HOME (Self Care) Prescriptions/Referrals Prescriptions/Med Rec: No Action atorvastatin 40 mg tablet 40 mg PO .qhs Patient Comments: TOME 1 TABLETA POR V A ORAL TODOS LOS D AT NOCHE hydrocodone-acetaminophen 5-325 mg tablet 1 tab PO BID MDD 2 PRN (Reason: pain) Qty: 10 0RF celecoxib 100 mg capsule 100 mg PO QDAY Patient Comments: TOME 1 C PSULA POR V A ORAL DOS VECES AL D A POR 7 D CUANDO SEA NECESARIO acetaminophen 500 mg tablet 500 mg PO Q6H PRN (Reason: pain) Referrals: Deep Saucedo MD [Primary Care Provider, Family Practice] - In 1 week Problem List Clinical Impression: Acute hyperglycemia, Acute kidney failure Patient/Caregiver Discharge Instructions Education Materials: High Blood Sugar (Hyperglycemia), How to Check Your Blood Sugar, Acute Kidney Failure Dc Additional Instructions: Por favor, consulte con corona m?dico de cabecera que corona HbA1c es de 11 y que hoy tambi?n se ivy detectado zoya disfunci?n renal leve. Vuelva de inmediato si presenta un empeoramiento de los s?ntomas o nuevos s?ntomas preocupantes. Print Language: Romansh Stand Alone Forms: Mar Award Info., Patient Portal Info Letter
[2025-01-03 21:48] VITALS: BP 140/76; PULSE 76; RESP 16; TEMP 36.7; O2SAT 98
== END 2025-01-03 21:51 | disposition home or self-care (01) ==
PROVIDERS: Nurse Practitioner Primary Care; Emergency Provider Emergency Medicine; PCP Family Medicine
DX: E11.65 Type 2 diabetes mellitus with hyperglycemia (principal); E78.5 Hyperlipidemia, unspecified; N17.9 Acute kidney failure, unspecified
CPT/HCPCS: 36415; 80053; 81001; 82010; 82803; 83036; 85025; 96360; 96361; 99284; J7030

== ENCOUNTER 2025-01-04 07:06 | Emergency (ER) | payer MEDICAID, SELFPAY ==
[2025-01-04 07:08] VITALS: BMI 30.8
[2025-01-04 07:16] VITALS: BP 144/94; PULSE 76; RESP 18; TEMP 36.4; O2SAT 95; BMI 30.6
--- NOTE | 2025-01-04 07:38 | PD.EDRME ---
Rapid Medical Screening Exam RME Arrival date/time: 01/04/25 07:06 64-year-old male presents to the emergency department today patient was evaluated yesterday for elevated blood sugar patient returns today for elevated blood sugar dysuria lower abdominal pain Chief Complaint: Abdominal Pain Time Seen by Provider: 01/04/25 07:21 Vital signs: Vital Signs Temperature 97.6 F 01/04/25 07:16 Pulse Rate 76 01/04/25 07:16 Respiratory Rate 18 01/04/25 07:16 Blood Pressure 144/94 H 01/04/25 07:16 Pulse Oximetry (%) 95 01/04/25 07:16 Oxygen Delivery Method Room Air 01/04/25 07:16
--- NOTE | 2025-01-04 07:40 | EKG_ITS ---
[facility] Test Date: 2025-01-04 Pat Name: ROSALIE NEWSOME Department: Room: - Gender: Male Client Liaison: : 1960 Requested By: Ramone Galan Order Number: [id number] Reading MD: Ramone Galan Measurements Intervals [place] Rate: 64 P: 16 LA: 165 QRS: 29 QRSD: 106 T: 32 QT: 385 QTc: 400 Interpretive Statements SINUS RHYTHM Compared to ECG 11/01/2020 10:18:24 No significant changes /store/S0/[id number].pdf
--- NOTE | 2025-01-04 08:00 | PC.NURSE ---
PT CAME IN WITH C/O LOWER ABD PAIN AND FREQUENT URINATION. PT STATES THAT HE WAS HERE YESTERDAY WITH SAME ISSUE BUT STATES THAT HIS BLOOD SUGAR WAS HIGH. BLOOD SUGAR THIS VISIT READS CRITICAL HIGH. PER PT HE JUST ATE AND HE ONLY TAKES THE WEIGHT LOSS SHOT BUT DOES NOT TAKE ANY MEDICATION FOR DIABETES. PT IS ABLE TO URINATE BUT REPORTS BURNING AND PAIN WITH URINATION. PT PLACED ON CC MONITOR.
[2025-01-04 08:15] VITALS: PULSE 76
[2025-01-04] MEDS: SODIUM CHLORIDE 0.9% 1000 ML 1,000 ML 999 ML IV ×2 (08:21→08:22)
[2025-01-04 08:35] LABS: Base Excess, Venous -1 (-3-3); O2 Saturation, Venous 92 % (96-97); PCO2, Venous 39 mmHg (36-56); PO2, Venous 61 mmHg (15-58); pH, Venous 7.39 (7.33-7.66)
[2025-01-04 08:41] LABS: Basophils # (Auto) 0.0 Thou/mm3 (0.0-0.2); Basophils % (Auto) 0 % (0-2.5); Beta Hydroxybutyrate 0.1 mmol/L (<0.6); Eosinophils # (Auto) 0.2 Thou/mm3 (0.0-0.5); Eosinophils % (Auto) 1 % (0-10); Hematocrit 41.5 % (41.0-53.0); Hemoglobin 14.9 g/dL (13.5-16.0); Immature Granulocytes Auto 0.05 Thou/mm3 (0.00-0.00); Lymphocytes # (Auto) 2.4 Thou/mm3 (1.0-4.8); Lymphocytes % (Auto) 21 % (10-50); Mean Corpuscular HGB Conc 35.9 g/dl (31.0-37.0); Mean Corpuscular Hemoglobin 30.3 pg (25.0-35.0); Mean Corpuscular Volume 84 fL (80-100); Monocytes # (Auto) 0.8 Thou/mm3 (0.0-0.8); Monocytes % (Auto) 7 % (0-12); Neutrophils # (Auto) 7.8 Thou/mm3 (1.8-7.7); Neutrophils % (Auto) 70 % (37-80); Nucleated Red Blood Cell # 0.00 Thou/mm3 (0.00-0.00); Nucleated Red Blood Cell % 0 /100 WBC (0); Platelet Count 222 Thou/mm3 (140-440); RDW Standard Deviation 35.5 fL (35.1-43.9); Red Blood Count 4.92 Miln/mm3 (4.50-5.90); White Blood Count 11.2 Thou/mm3 (3.8-10.6)
[2025-01-04 08:59] LABS: Bilirubin,Urine Negative (Negative); Blood,Urine Negative (Negative); Clarity,Urine Clear (Clear/Hazy); Collection Type, Urine Clean Catch; Color,Urine Colorless (Lt Yel-Yel); Culture Indicated,Urine Not Indicated; Glucose, Urine 4+ (Negative); Ketones,Urine Trace (Negative); Leukocyte Esterase,Urine Negative (Negative); Nitrite,Urine Negative (Negative); PH,Urine 6.0 (5.0-7.0); Protein,Urine Negative (Neg - Trace); RBC,Urine 1 /hpf (0-3); Specific Gravity,Urine 1.032 (1.001-1.035); Squamous Epithelial Cell,Urine 0 /hpf (0-5); Urobilinogen,Urine Negative mg/dL (0.0-1.0); WBC,Urine < 1 /hpf (0-5)
[2025-01-04 09:06] LABS: Alanine Aminotransferase 63 U/L (10-49); Albumin, Serum 4.4 gm/dL (3.4-4.8); Albumin/Globulin Ratio 1.6 (1.2-2.2); Alkaline Phosphatase 148 U/L (46-116); Anion Gap 9 (7-16); Aspartate Amino Transferase 32 U/L (0-34); BUN/Creatinine Ratio 9 Ratio (12-20); Bilirubin,Total 1.1 mg/dL (0.3-1.2); Blood Urea Nitrogen 11 mg/dL (9-23); Calcium 9.6 mg/dL (8.3-10.6); Calcium (Corrected) 9.6 mg/dL (8.5-10.1); Carbon Dioxide 21.4 mMol/L (20.0-31.0); Chloride 102 mMol/L (98-107); Creatinine (Component) 1.2 mg/dL (0.6-1.3); Estimated Creatinine Clearance 57.6 mL/min (>60); Globulin 2.7 gm/dL (2.3-3.5); Osmolality,Calculated 289 (275-295); Potassium 4.3 mMol/L (3.4-5.1); Sodium 132 mMol/L (136-145); Total Protein 7.1 gm/dL (5.7-8.2); Troponin I < 0.020 ng/mL (0.0-0.045); eGFR > 60 See Note
[2025-01-04 09:08] LABS: Glucose 560 mg/dL (74-106)
[2025-01-04 09:38] VITALS: BP 136/75; PULSE 57; RESP 18; O2SAT 97
[2025-01-04] MEDS: INSULIN HUM REGULAR 1 UNIT/0.01 ML (PER UNIT) 8 UNIT IV (10:08)
--- NOTE | 2025-01-04 10:30 | PC.NURSE ---
in and out cath done. drained bladder. 300ml output noted. Dr. Daniels informed.
[2025-01-04 10:42] VITALS: BP 162/94; PULSE 68; RESP 19; TEMP 36.6; O2SAT 98
--- NOTE | 2025-01-04 11:22 | PD.EDABDPN ---
ED Abdominal Pain RME/HPI General Chief Complaint: Abdominal Pain Stated complaint: ABD PAIN PAINFUL URINATION Time seen by provider: 01/04/25 07:21 Arrival date/time: 01/04/25 07:06 Limitations: no limitations RME / HPI RME / HPI narrative: 01/04/25 07:06 64-year-old male presents to the emergency department today patient was evaluated yesterday for elevated blood sugar patient returns today for elevated blood sugar dysuria lower abdominal pain DR. SANTACRUZ MAIN ED EVALUATION: 64 year old male with history of hyperlipidemia and diabetes presents to the ED for evaluation of lower abdominal pain and dysuria. Pain described as aching in sensation with no radiation, rating as moderate. Patient additionally reports his blood sugar is elevated today and just evaluated here recently for elevated blood sugar. Patient states he is on a medication similar to Ozempic and has not taken for 2 weeks. Denies fevers, chills, chest pain, cough, shortness of breath, diarrhea, constipation, or urinary symptoms. Related Data Home Medications ?Medication ?Instructions ?Recorded ?Confirmed atorvastatin 40 mg tablet 40 mg PO .qhs 04/26/24 07/19/24 acetaminophen 500 mg tablet 500 mg PO Q6H PRN pain 07/19/24 07/19/24 celecoxib 100 mg capsule 100 mg PO QDAY 07/19/24 07/19/24 Previous Rx's ?Medication ?Instructions ?Recorded hydrocodone 5 mg-acetaminophen 325 1 tab PO BID PRN pain #10 tabs 04/28/24 mg tablet Held on 07/19/24. Instructions: Resume on 07/20/24. Allergies Allergy/AdvReac Type Severity Reaction Status Date / Time No Known Allergies Allergy Verified 01/04/25 07:11 Review of Systems Review of Systems Systems Reviewed: All systems reviewed, normal except as documented Past Medical History Past Medical History NEUROLOGIC: Positive Neurological Disorders and Head Trauma CARDIAC: Positive Hypercholesterolemia and Hypertension GASTROINTESTINAL: Positive Gastrointestinal Disorders, Gall Bladder Disease, Gastrointestinal Bleed, Crohn's Disease and Hiatal Hernia GENITOURINARY: Positive Kidney Stones, Inguinal Hernia and Benign Prostatic Hyperplasia ENT: Positive Head Trauma ENDOCRINE: Positive Diabetes Mellitus Type 2 PSYCHO/SOCIAL: Positive Depression and Anxiety Family History FAMILY HISTORY: Positive Family Cancer Social History SMOKING STATUS: Never smoker ED Exam General Limitations: Present no limitations General appearance: Present alert and in no apparent distress Head Head exam: Present atraumatic Eye Eye exam: Present normal appearance, PERRL and EOMI ENT ENT exam: Present normal exam, normal oropharynx and mucous membranes moist Neck Neck exam: Present normal inspection, full ROM and trachea midline Chest Chest inspection: Present normal inspection and symmetric chest wall rise Respiratory Respiratory exam: Present normal lung sounds bilaterally Cardiovascular Cardiovascular exam: Present regular rate, normal rhythm and normal heart sounds Abdominal Exam Abdominal exam: Present soft and normal bowel sounds; Absent tenderness, guarding, rebound or rigidity Extremities Exam Extremities exam: Present normal inspection and full ROM Back Exam Back exam: Present normal inspection and full ROM Neurological Exam Neurological exam: Present alert, oriented X3 and CN II-XII intact Psychiatric Psychiatric exam: Present normal affect and normal mood Skin Skin exam: Present warm, dry, intact and normal color Course Quality Measures none Orders Category Date Time Status Bedside Blood Glucose NOW Care 01/04/25 07:34 Completed [employer] NOW Care 01/04/25 07:40 Completed Continuous Pulse Oximetry NOW Care 01/04/25 07:40 Completed EKG (ED ONLY) *Do not use* NOW Care 01/04/25 07:40 Completed In and Out Catheter X1 Care 01/04/25 08:02 Completed Insert IV NOW Care 01/04/25 07:40 Completed EKG (ED Only) Stat Exams 01/04/25 07:40 Draft Beta Hydroxybutyrate Stat Lab 01/04/25 08:10 Completed CBC Stat Lab 01/04/25 08:10 Completed CMP [Comprehensive Metabolic Panel] Stat Lab 01/04/25 08:10 Completed Troponin I Stat Lab 01/04/25 08:10 Completed UA, C/S IF [Urinalysis, C/S if Indicated] Stat Lab 01/04/25 07:45 Completed VBG [Venous Blood Gas] Stat Lab 01/04/25 08:10 Completed Insulin Regular Med 01/04/25 08:02 Discontinued 10 unit IV X1 ONE Insulin Regular Med 01/04/25 09:56 Discontinued 8 unit IV X1 ONE Sodium Chloride 0.9% 1000 ml [Ns] 1,000 ml Med 01/04/25 07:34 Discontinued IV 999 mls/hr Sodium Chloride 0.9% 1000 ml [Ns] 1,000 ml Med 01/04/25 07:40 Discontinued IV 999 mls/hr Vital Signs Vital signs: Vital Signs Temperature 97.6 F 01/04/25 07:16 Pulse Rate 76 01/04/25 07:16 Respiratory Rate 18 01/04/25 07:16 Blood Pressure 144/94 H 01/04/25 07:16 Pulse Oximetry (%) 95 01/04/25 07:16 Oxygen Delivery Method Room Air 01/04/25 07:16 Pulse ox is 95% on room air which is adequate. Abdominal Pain MDM MDM Narrative MDM Narrative:: The patient reports he is on a medication similar to Ozempic and has not taken for 2 weeks. I advised the patient give himself an injection today and drink plenty of fluids. Patients urine test today was normal and recommended he follow up with his urologist and PCP. Patient data External records reviewed:: [facility] previous records Clinical information provided by:: patient Social determinants that could affect healthcare access:: none Patient has the following chronic illnesses:: Diabetes How is presenting disease/condition affected by chronic disease/condition?: exacerbated by Evaluation data The following diagnostics were reviewed and interpreted by me:: EKG tracing(s) (EKG @ 07:47 AM. Normal sinus rhythm, rate 64, no STEMI. ) Lab and/or radiology exams considered but not ordered:: None Interpretation Summary: Glucose 560 and treated with IV fluids and 8 units of Insulin Medications / Prescriptions Medications or Prescriptions considered but not ordered:: None Medication administrations:: Medication Administration History Discontinued Medications Sodium Chloride (Ns) 1,000 mls @ 999 mls/hr IV .Q1H1M ONE Stop: 01/04/25 08:34 Last Infusion: 01/04/25 09:25 Dose: Infused Documented By: Admin: 01/04/25 08:21 Dose: 999 mls/hr Documented By: DO Sodium Chloride (Ns) 1,000 mls @ 999 mls/hr IV .Q1H1M ONE Stop: 01/04/25 08:40 Last Infusion: 01/04/25 09:25 Dose: Infused Documented By: Admin: 01/04/25 08:22 Dose: 999 mls/hr Documented By: DO Insulin Human Regular (Insulin Hum Regular 1 Unit/0.01 Ml (Per Unit)) 10 unit IV X1 ONE Stop: 01/04/25 08:03 Last Admin: 01/04/25 10:03 Dose: Not Given Documented By: DO Non-Admin Reason: Cancelled by Provider Insulin Human Regular (Insulin Hum Regular 1 Unit/0.01 Ml (Per Unit)) 8 unit IV X1 ONE Stop: 01/04/25 09:57 Last Admin: 01/04/25 10:08 Dose: 8 unit Documented By: DO Co-signed By: TYESHA See above Consultations Consultation(s) initiated? (list below): No Diagnosis Differential diagnosis abdominal pain: abdominal pain, constipation, diverticulitis and gastroenteritis Most likely diagnosis given after review of the tests above:: Hyperglycemia Abdominal pain Admission Indicated Admission indicated?: not indicated Admission Request Was there a request for admission?: No Disposition Plan Disposition Plan: Discharge Discharge Attestation Discharge Attestation: The patient and all family members were given an opportunity to ask questions and understood the discharge instructions. Discharge instructions specifically effects, indications for sooner follow up or return to the emergency department, and the expected course of current diagnosis. Patient condition: Stable Discharge Plan Plan Patient Disposition: HOME (Self Care) Patient condition on transfer: Stable Prescriptions/Referrals Prescriptions/Med Rec: No Action atorvastatin 40 mg tablet 40 mg PO .qhs Patient Comments: TOME 1 TABLETA POR V A ORAL TODOS LOS D AT NOCHE hydrocodone-acetaminophen 5-325 mg tablet 1 tab PO BID MDD 2 PRN (Reason: pain) Qty: 10 0RF celecoxib 100 mg capsule 100 mg PO QDAY Patient Comments: TOME 1 C PSULA POR V A ORAL DOS VECES AL D A POR 7 D CUANDO SEA NECESARIO acetaminophen 500 mg tablet 500 mg PO Q6H PRN (Reason: pain) Referrals: No Primary/Family,Physician [Primary Care Provider] - In 1 week Problem List Clinical Impression: Hyperglycemia, Abdominal pain Patient/Caregiver Discharge Instructions Discharge Activity: activity as tolerated Education Materials: Abdominal Pain, ED Diabetes with High Blood Sugar Additional Instructions: Take your once weekly medicine for diabetes and obesity today. Drink plenty of fluids. Check your blood sugars in the morning and before meals. Follow-up with your primary care doctor and your urologist as scheduled. Print Language: [place] Stand Alone Forms: Mar Award Info., Patient Portal Info Letter
[2025-01-04 12:46] VITALS: BP 141/82; PULSE 66; RESP 18; TEMP 36.9; O2SAT 95
== END 2025-01-04 13:30 | disposition home or self-care (01) ==
PROVIDERS: Nurse Practitioner Primary Care; Emergency Provider Family Medicine
DX: E11.65 Type 2 diabetes mellitus with hyperglycemia (principal); E78.5 Hyperlipidemia, unspecified
CPT/HCPCS: 36415; 80053; 81001; 82010; 82803; 84484; 85025; 93005; 96360; 99285; J1815; J7030

== ENCOUNTER 2025-01-20 14:38 | Emergency (ER) | payer MEDICAID, SELFPAY ==
--- NOTE | 2025-01-20 14:58 | XR_ITS ---
Exam: Chest 1 view, AP Date and time of exam: 01/20/2025, 3:24 p.m. INDICATION: Chest pain Comparison: 10/15/2021 Findings: Normal heart size. No mediastinal adenopathy. No acute fracture No pulmonary edema or pneumonia. Impression: No active disease.
[2025-01-20 14:59] VITALS: BP 133/96; PULSE 97; RESP 20; TEMP 36.6; O2SAT 96
--- NOTE | 2025-01-20 14:59 | EKG_ITS ---
[facility] Test Date: 2025-01-20 Pat Name: ROSALIE NEWSOME Department: Room: - Gender: Male Instrument Specialist: : 1960 Requested By: Semaj Pederson Order Number: [id number] Reading MD: Semaj Pederson Measurements Intervals [place] Rate: 94 P: 65 SD: 143 QRS: 62 QRSD: 96 T: 60 QT: 329 QTc: 412 Interpretive Statements SINUS RHYTHM Compared to ECG 01/04/2025 07:47:45 No significant changes /store/S0/[id number]
--- NOTE | 2025-01-20 15:02 | PD.EDNV ---
Nausea/Vomit./Diarrhea-RME/HPI General Chief complaint: Nausea/Vomiting/Diarrhea Stated complaint: Vomiting, dry mouth, weak and has high sugars Time Seen by Provider: 01/20/25 14:41 Arrival date/time: 01/20/25 14:38 64-year-old male patient with a significant history of diabetes mellitus, came in for evaluation regarding not feeling well. Patient's been having nausea vomiting dry mouth, elevated blood sugar, weakness, losing a lot of weight, has been ongoing for the last several days. Patient is currently on Ozempic. Patient denies any chest pain abdominal pain fever or other complaints. No medication was taken prior to ER visit. Related Data Home Medications ?Medication ?Instructions ?Recorded ?Confirmed atorvastatin 40 mg tablet 40 mg PO .qhs 04/26/24 07/19/24 acetaminophen 500 mg tablet 500 mg PO Q6H PRN pain 07/19/24 07/19/24 celecoxib 100 mg capsule 100 mg PO QDAY 07/19/24 07/19/24 Previous Rx's ?Medication ?Instructions ?Recorded hydrocodone 5 mg-acetaminophen 325 1 tab PO BID PRN pain #10 tabs 04/28/24 mg tablet Held on 07/19/24. Instructions: Resume on 07/20/24. Allergies Allergy/AdvReac Type Severity Reaction Status Date / Time No Known Allergies Allergy Verified 01/20/25 14:42 Review of Systems Review of Systems Narrative Review of Systems: Review of system reviewed and within normal limits except mentioned in HPI ED Exam Narrative Physical exam: VITAL SIGNS: Reviewed. GENERAL APPEARANCE: Alert and interactive, follows commands, no acute distress, HEAD AND FACE: Non-traumatic. ENT: PERRL, pink conjunctivitis, eyelid no trauma, Mucous membrane dry NECK: Supple, nontender, no nuchal rigidity. CHEST: No tenderness, no crepitus, no paradoxical movement, no retractions. LUNGS: Clear, well ventilated, symmetric, no rales, no wheezing, no ronchi, no stridor, good breath sounds bilaterally. HEART: Regular rate, regular rhythm, no murmur, no gallops. ABDOMEN: Soft, positive bowel sounds, nondistended, no guarding, nontender, no rebound, no masses, RECTAL: Deferred. GENITAL: Deferred. NEUROLOGICAL: Gross motor function intact sensory function intact, Appropriate for age. MUSCULOSKELETAL: low back nontender, full range of motion. EXTREMITIES: Nontender, full range of motion. SKIN: Color pink, dry, no rash, no lacerations, no abrasions, no contusions. LYMPHATICS: Deferred. Course Quality Measures none Orders Category Date Time Status EKG (ED ONLY) *Do not use* NOW Care 01/20/25 14:59 Completed EKG (ED Only) Stat Exams 01/20/25 14:59 Draft XR chest 1V Stat Exams 01/20/25 14:58 Completed Acetone [Beta Hydroxybutyrate] Stat Lab 01/20/25 15:29 Completed B-Type Natriuretic Peptide Stat Lab 01/20/25 15:29 Completed CBC Stat Lab 01/20/25 15:29 Completed Comprehensive Metabolic Panel Stat Lab 01/20/25 15:29 Completed Lipase Stat Lab 01/20/25 15:29 Completed Partial Thromboplastin Time Stat Lab 01/20/25 15:29 Completed Urinalysis, C/S if Indicated Stat Lab 01/20/25 16:07 Completed VBG [Venous Blood Gas] Stat Lab 01/20/25 15:29 Completed Insulin Regular Med 01/20/25 16:38 Discontinued 10 unit IV X1 ONE Ondansetron Inj [Zofran Inj] Med 01/20/25 14:57 Discontinued 4 mg IVP X1 ONE Ringers Lactated 1000 ml [Lactated Ringers] 1,000 ml Med 01/20/25 14:58 Discontinued IV 999 mls/hr Ringers Lactated 1000 ml [Lactated Ringers] 1,000 ml Med 01/20/25 14:59 Discontinued IV 999 mls/hr hydrALAZINE INJ [Apresoline Inj] Med 01/20/25 16:19 Discontinued 10 mg IVP X1 ONE Vital Signs Vital signs: Vital Signs Temperature 97.8 F 01/20/25 14:59 Pulse Rate 97 01/20/25 14:59 Respiratory Rate 20 01/20/25 14:59 Blood Pressure 133/96 H 01/20/25 14:59 Pulse Oximetry (%) 96 01/20/25 14:59 Oxygen Delivery Method Room Air 01/20/25 14:59 Nausea/Vomiting/Diarrhea MDM Narrative MDM Narrative:: 64-year-old male patient with a significant history of diabetes mellitus, came in for evaluation regarding not feeling well. Patient's been having nausea vomiting dry mouth, elevated blood sugar, weakness, losing a lot of weight, has been ongoing for the last several days. Patient is currently on Ozempic. Patient denies any chest pain abdominal pain fever or other complaints. No medication was taken prior to ER visit. Initially patient blood sugar was noted to be above 600, with no sign of diabetic ketoacidosis. The rest of the labs unremarkable. I repeat blood sugar, after patient received 10 units of insulin IV, 2 L of IV fluids, I went down to 376, patient verbalized he is ready to go home she is tolerating p.o. fluids prior to discharge. I advised him not to take his Ozempic until I will see or talk to his PCP. Patient data External records reviewed:: None Clinical information provided by:: patient Social determinants that could affect healthcare access:: none Patient has the following chronic illnesses:: Diabetes mellitus How is presenting disease/condition affected by chronic disease/condition?: exacerbated by Evaluation data The following diagnostics were reviewed and interpreted by me:: lab results and radiology exam(s) Lab and/or radiology exams considered but not ordered:: None Interpretation Summary: EKG showed normal sinus rhythm, ventricular rate of 94 bpm, no ST segment ovation depression noted. Medications / Prescriptions Medications / Prescriptions considered but not ordered:: None Medication administrations:: Medication Administration History Discontinued Medications Hydralazine HCl (Hydralazine Inj 20 Mg/Ml Vial) 10 mg IVP X1 ONE Stop: 01/20/25 16:20 Last Admin: 01/20/25 16:43 Dose: Not Given Documented By: SIMI Non-Admin Reason: Cancelled by Provider Lactated Ringer's (Lactated Ringers) 1,000 mls @ 999 mls/hr IV .Q1H1M ONE Stop: 01/20/25 15:58 Last Infusion: 01/20/25 17:06 Dose: Infused Documented By: Admin: 01/20/25 16:05 Dose: 999 mls/hr Documented By: JIMMY Lactated Ringer's (Lactated Ringers) 1,000 mls @ 999 mls/hr IV .Q1H1M ONE Stop: 01/20/25 15:59 Last Infusion: 01/20/25 17:53 Dose: Infused Documented By: Admin: 01/20/25 16:52 Dose: 999 mls/hr Documented By: SIMI Insulin Human Regular (Insulin Hum Regular 1 Unit/0.01 Ml (Per Unit)) 10 unit IV X1 ONE Stop: 01/20/25 16:39 Last Admin: 01/20/25 16:52 Dose: 10 unit Documented By: SIMI Co-signed By: REMY Ondansetron HCl (Ondansetron Inj 2 Mg/Ml Inj 2 Ml) 4 mg IVP X1 ONE; Protocol Stop: 01/20/25 14:58 Last Admin: 01/20/25 16:52 Dose: 4 mg Documented By: SIMI See [facility] Consultations Consultation(s) initiated? (list below): No Diagnosis Nausea Differential Diagnosis: gastroenteritis and dehydration Most likely diagnosis given after review of the tests above:: Hyperglycemia Admission Indicated Admission indicated?: not indicated Admission Request Was there a request for admission?: No Disposition Plan Disposition Plan: Discharge Discharge Attestation Discharge Attestation: The patient was given an opportunity to ask questions and understood the discharge instructions. Discharge instructions specifically effects, indications for sooner follow up or return to the emergency department, and the expected course of current diagnosis. Patient condition: Stable Discharge Plan Plan Patient Disposition: HOME (Self Care) Discharge Disposition comment: stable Prescriptions/Referrals Prescriptions/Med Rec: No Action atorvastatin 40 mg tablet 40 mg PO .qhs Patient Comments: TOME 1 TABLETA POR V A ORAL TODOS LOS D AT NOCHE hydrocodone-acetaminophen 5-325 mg tablet 1 tab PO BID MDD 2 PRN (Reason: pain) Qty: 10 0RF celecoxib 100 mg capsule 100 mg PO QDAY Patient Comments: TOME 1 C PSULA POR V A ORAL DOS VECES AL D A POR 7 D CUANDO SEA NECESARIO acetaminophen 500 mg tablet 500 mg PO Q6H PRN (Reason: pain) Referrals: Deep Saucedo MD [Primary Care Provider, Family Practice] - In 1 week Problem List Clinical Impression: Dehydration, Hyperglycemia Patient/Caregiver Discharge Instructions Discharge Activity: activity as tolerated Education Materials: ED Diabetes with High Blood Sugar Additional Instructions: Thank you for the opportunity for serving you today. You are stable for discharged . You are advised to: Follow-up with your PCP in 1 to 2 days Return to ED for worsening of symptoms Increase oral fluids Please stop using Ozempic until you talk to your doctor. Print Language: [place] Stand Alone Forms: Mar Award Info., Patient Portal Info Letter PA/HETAL Supervising Physician PA/SCRE[employer] Supervising Physician: MD Mason
[2025-01-20 15:42] LABS: Base Excess, Venous -1 (-3-3); O2 Saturation, Venous 56 % (96-97); PCO2, Venous 46 mmHg (36-56); PO2, Venous 29 mmHg (15-58); pH, Venous 7.35 (7.33-7.66)
[2025-01-20 16:00] LABS: Basophils # (Auto) 0.0 Thou/mm3 (0.0-0.2); Basophils % (Auto) 0 % (0-2.5); Eosinophils # (Auto) 0.1 Thou/mm3 (0.0-0.5); Eosinophils % (Auto) 1 % (0-10); Hematocrit 48.2 % (41.0-53.0); Hemoglobin 16.8 g/dL (13.5-16.0); Immature Granulocytes Auto 0.04 Thou/mm3 (0.00-0.00); Lymphocytes # (Auto) 3.0 Thou/mm3 (1.0-4.8); Lymphocytes % (Auto) 24 % (10-50); Mean Corpuscular HGB Conc 34.9 g/dl (31.0-37.0); Mean Corpuscular Hemoglobin 29.5 pg (25.0-35.0); Mean Corpuscular Volume 85 fL (80-100); Monocytes # (Auto) 0.8 Thou/mm3 (0.0-0.8); Monocytes % (Auto) 7 % (0-12); Neutrophils # (Auto) 8.3 Thou/mm3 (1.8-7.7); Neutrophils % (Auto) 68 % (37-80); Nucleated Red Blood Cell # 0.00 Thou/mm3 (0.00-0.00); Nucleated Red Blood Cell % 0 /100 WBC (0); Platelet Count 269 Thou/mm3 (140-440); RDW Standard Deviation 35.8 fL (35.1-43.9); Red Blood Count 5.69 Miln/mm3 (4.50-5.90); White Blood Count 12.2 Thou/mm3 (3.8-10.6)
[2025-01-20 16:01] LABS: B-Type Natriuretic Peptide < 20 pg/mL (0-100)
[2025-01-20] MEDS: RINGERS LACTATED 1000 ML 1,000 ML 999 ML IV ×2 (16:05→16:52)
[2025-01-20 16:08] LABS: Partial Thromboplastin Time 28.2 Seconds (22.0-36.0)
[2025-01-20 16:11] LABS: Alanine Aminotransferase 44 U/L (10-49); Albumin, Serum 5.1 gm/dL (3.4-4.8); Albumin/Globulin Ratio 1.8 (1.2-2.2); Alkaline Phosphatase 198 U/L (46-116); Anion Gap 13 (7-16); Aspartate Amino Transferase 23 U/L (0-34); BUN/Creatinine Ratio 6 Ratio (12-20); Bilirubin,Total 1.1 mg/dL (0.3-1.2); Blood Urea Nitrogen 11 mg/dL (9-23); Calcium 10.1 mg/dL (8.3-10.6); Calcium (Corrected) 10.1 mg/dL (8.5-10.1); Carbon Dioxide 24.2 mMol/L (20.0-31.0); Chloride 96 mMol/L (98-107); Creatinine (Component) 1.7 mg/dL (0.6-1.3); Globulin 2.8 gm/dL (2.3-3.5); Lipase 48 U/L (12-53); Osmolality,Calculated 294 (275-295); Potassium 4.7 mMol/L (3.4-5.1); Sodium 133 mMol/L (136-145); Total Protein 7.9 gm/dL (5.7-8.2); eGFR 44 See Note
[2025-01-20 16:17] LABS: Glucose 625 mg/dL (74-106)
[2025-01-20 16:19] LABS: Collection Type, Urine Clean Catch; Squamous Epithelial Cell,Urine 0 /hpf (0-5)
[2025-01-20 16:19] LABS: Beta Hydroxybutyrate 1.9 mmol/L (<0.6)
[2025-01-20 16:26] LABS: Bilirubin,Urine Negative (Negative); Blood,Urine Negative (Negative); Clarity,Urine Clear (Clear/Hazy); Color,Urine Colorless (Lt Yel-Yel); Culture Indicated,Urine Not Indicated; Glucose, Urine 4+ (Negative); Ketones,Urine 1+ (Negative); Leukocyte Esterase,Urine Negative (Negative); Nitrite,Urine Negative (Negative); PH,Urine 6.0 (5.0-7.0); Protein,Urine Negative (Neg - Trace); RBC,Urine 1 /hpf (0-3); Specific Gravity,Urine 1.039 (1.001-1.035); Urobilinogen,Urine Negative mg/dL (0.0-1.0); WBC,Urine 1 /hpf (0-5)
[2025-01-20 16:39] VITALS: BP 155/98; PULSE 80; RESP 18; O2SAT 99
[2025-01-20] MEDS: ONDANSETRON INJ 2 MG/ML INJ 2 ML 4 MG IVP (16:52)
[2025-01-20] MEDS: INSULIN HUM REGULAR 1 UNIT/0.01 ML (PER UNIT) 10 UNIT IV (16:52)
[2025-01-20 17:22] VITALS: BP 137/74; PULSE 71; RESP 18; TEMP 36.3; O2SAT 94
[2025-01-20 18:36] VITALS: BP 131/83; PULSE 78; RESP 18; O2SAT 95
== END 2025-01-20 18:38 | disposition home or self-care (01) ==
PROVIDERS: Nurse Practitioner Family; Emergency Provider Emergency Medicine; PCP Family Medicine
DX: E86.0 Dehydration (principal); E11.65 Type 2 diabetes mellitus with hyperglycemia; Z79.85 Long-term (current) use of injectable non-insulin antidiabetic drugs
CPT/HCPCS: 36415; 71045; 80053; 81001; 82010; 82803; 83690; 83880; 85025; 85730; 93005; 96361; 96374; 99284; J1815; J2405; J7120

== ENCOUNTER 2025-01-29 10:51 | Inpatient (IN) | payer MEDICAID, SELFPAY ==
[2025-01-29] VITALS (10 sets, daily range): BP systolic 121–183; BP diastolic 81–105; PULSE 69–103; RESP 15–97; TEMP 36.5–37.4; O2SAT 95–99; BMI 33.2; BMI 29.4
--- NOTE | 2025-01-29 10:56 | EKG_ITS ---
[facility] Test Date: 2025-01-29 Pat Name: ROSALIE NEWSOME Department: Room: - Gender: Male Ux Specialist: : 1960 Requested By: Nixon Hayden Order Number: [id number] Reading MD: Nixon Hayden Measurements Intervals [place] Rate: 107 P: 52 DC: 143 QRS: 46 QRSD: 96 T: 35 QT: 311 QTc: 417 Interpretive Statements SINUS TACHYCARDIA ABNORMAL RHYTHM ECG Compared to ECG 01/20/2025 15:09:00 Sinus rhythm no longer present /store/S0/[id number]/[id number]
--- NOTE | 2025-01-29 11:07 | XR_ITS ---
EXAMINATION: PA chest single view TECHNIQUE: Upright PA chest single view Date and time: January 29, 2025, 1113 hours, comparison January 20, 2025 INDICATIONS: Chest pain today FINDINGS: Normal heart size No lobar pneumonia Old anterior lower rib deformities No acute fractures IMPRESSION: No pneumonia or pulmonary edema
--- NOTE | 2025-01-29 11:08 | PD.EDCHEST ---
ED Chest Pain RME/HPI General Chief Complaint: Abdominal Pain Stated Complaint: ABD PAIN, SOB, HIGH BS Time Seen by Provider: 01/29/25 10:53 Source: patient Arrival date/time: 01/29/25 10:51 64-year-old male with a history of hyperlipidemia presents to the emergency room with a chief complaint of left sternal chest pain, shortness of breath, and elevated blood sugar reading x 1 day Mode of arrival: ambulatory Limitations: no limitations Related Data Home Medications ?Medication ?Instructions ?Recorded ?Confirmed atorvastatin 40 mg tablet 40 mg PO .qhs 04/26/24 07/19/24 acetaminophen 500 mg tablet 500 mg PO Q6H PRN pain 07/19/24 07/19/24 celecoxib 100 mg capsule 100 mg PO QDAY 07/19/24 07/19/24 Previous Rx's ?Medication ?Instructions ?Recorded hydrocodone 5 mg-acetaminophen 325 1 tab PO BID PRN pain #10 tabs 04/28/24 mg tablet Held on 07/19/24. Instructions: Resume on 07/20/24. Allergies Allergy/AdvReac Type Severity Reaction Status Date / Time No Known Allergies Allergy Verified 01/29/25 10:54 Review of Systems Review of Systems Systems Reviewed: All systems reviewed, normal except as documented Constitutional Constitutional: Reports system reviewed and no additional complaints, except as documented, Denies fatigue, Denies fever(s), Denies headache(s) and Denies weakness Eyes Eyes: Reports system reviewed and no additional complaints, except as documented, Denies blurry vision and Denies change in vision ENT Ears, Nose, Mouth, and Throat: Reports system reviewed and no additional complaints, except as documented, Denies otalgia, Denies headache(s), Denies nasal congestion, Denies throat swelling and Denies vertigo Cardiovascular Cardiovascular: Reports system reviewed and no additional complaints, except as documented, Reports chest pain, Reports dyspnea and Denies dyspnea on exertion Respiratory Respiratory: Reports system reviewed and no additional complaints, except as documented, Denies chest congestion, Denies cough, Reports dyspnea, Denies dyspnea on exertion and Denies wheezing Gastrointestinal Gastrointestinal: Reports system reviewed and no additional complaints, except as documented, Denies abdominal pain, Denies cramping, Denies nausea and Denies vomiting Genitourinary Genitourinary: Reports system reviewed and no additional complaints, except as documented, Denies dysuria and Denies hematuria Musculoskeletal Musculoskeletal: Reports system reviewed and no additional complaints, except as documented and Denies back pain Integumentary/Breasts Skin/Breast: Reports system reviewed and no additional complaints, except as documented and Denies wounds Neurologic Neurologic: Reports system reviewed and no additional complaints, except as documented, Denies confusion, Denies headache(s), Denies lack of coordination, Denies vertigo and Denies weakness Psychiatric Psychiatric: Reports system reviewed and no additional complaints, except as documented, Denies anxiety, Denies confusion, Denies depression, Denies paranoia, Denies suicidal ideation and Denies tactile hallucinations Endocrine Endocrine: Reports system reviewed and no additional complaints, except as documented and Denies fatigue Hematologic/Lymphatic Hematologic/Lymphatic: Reports system reviewed and no additional complaints, except as documented and Denies lymphadenopathy Allergic/Immunologic Allergic/Immunologic: Reports system reviewed and no additional complaints, except as documented, Denies throat swelling, Denies urticaria and Denies wheezing Past Medical History Past Medical History NEUROLOGIC: Positive Neurological Disorders and Head Trauma; Negative Seizures CARDIAC: Positive Hypercholesterolemia and Hypertension; Negative Cardiac Disorders or Congestive Heart Failure RESPIRATORY: Negative Chronic Obstructive Pulmonary Disease (COPD), Asthma or Bronchitis GASTROINTESTINAL: Positive Gastrointestinal Disorders, Gall Bladder Disease, Gastrointestinal Bleed, Crohn's Disease and Hiatal Hernia; Negative Hepatitis or Gastroesophageal Reflux Disease GENITOURINARY: Positive Genitourinary Disorders, Kidney Stones, Inguinal Hernia and Benign Prostatic Hyperplasia; Negative Renal Disease MUSCULOSKELETAL: Negative Musculoskeletal Disorders or Fractures ENT: Positive Head Trauma ENDOCRINE: Positive Diabetes Mellitus Type 2; Negative Endocrine Disorders, Diabetes Mellitus Type 1 or Hyperthyroidism HEMATOLOGIC: Negative Blood Disorders or Sickle Cell Disease PSYCHO/SOCIAL: Positive Depression and Anxiety OTHER HISTORY: Negative Hospitalization, Falls, Blood Transfusions, Blood Transfusion Reaction, Anesthesia Reactions, Chicken Pox, Measles, Mumps or Cancer Family History FAMILY HISTORY: Positive Family Cancer; Negative Family Cardiac Disorders Surgical History SURGICAL: Negative Cardiac Surgery, Tonsillectomy, Joint Replacement or Vasectomy Social History SMOKING STATUS: Never smoker ED Exam General Limitations: Present no limitations General appearance: Present alert and in no apparent distress Head Head exam: Present atraumatic Eye Eye exam: Present normal appearance, PERRL and EOMI ENT ENT exam: Present normal exam, normal oropharynx and mucous membranes moist Neck Neck exam: Present normal inspection, full ROM and trachea midline Chest Chest inspection: Present normal inspection and symmetric chest wall rise; Absent tenderness, rash or abscess Respiratory Respiratory exam: Present normal lung sounds bilaterally; Absent respiratory distress, wheezes, stridor, accessory muscle use or prolonged expiratory phase Cardiovascular Cardiovascular exam: Present regular rate, normal rhythm, tachycardia, normal heart sounds, +S1 and +S2 Abdominal Exam Abdominal exam: Present soft and normal bowel sounds Extremities Exam Extremities exam: Present normal inspection and full ROM Back Exam Back exam: Present normal inspection and full ROM Neurological Exam Neurological exam: Present alert, oriented X3 and CN II-XII intact Psychiatric Psychiatric exam: Present normal affect and normal mood Skin Skin exam: Present warm, dry, intact and normal color Course Quality Measures none Orders Category Date Time Status EKG (ED ONLY) *Do not use* NOW Care 01/29/25 10:56 Active EKG (ED Only) Stat Exams 01/29/25 10:56 Ordered XR chest 1V portable Stat Exams 01/29/25 11:07 Ordered B-Type Natriuretic Peptide Stat Lab 01/29/25 11:07 Ordered CBC Stat Lab 01/29/25 11:07 Ordered Comprehensive Metabolic Panel Stat Lab 01/29/25 11:07 Ordered Drug Screen,Urine Stat Lab 01/29/25 11:07 Ordered Free T4 (Free Thyroxine) Stat Lab 01/29/25 11:07 Ordered Magnesium Stat Lab 01/29/25 11:07 Ordered Partial Thromboplastin Time Stat Lab 01/29/25 11:07 Ordered Prothrombin Time with INR Stat Lab 01/29/25 11:07 Ordered TSH [Thyroid Stimulating Hormone] Stat Lab 01/29/25 11:07 Ordered Troponin I Stat Lab 01/29/25 11:07 Ordered Urinalysis, C/S if Indicated Stat Lab 01/29/25 11:07 Ordered Vital Signs Vital signs: Vital Signs Temperature 97.7 F 01/29/25 11:04 Pulse Rate 103 H 01/29/25 11:04 Respiratory Rate 16 01/29/25 11:04 Blood Pressure 121/88 H 01/29/25 11:04 Pulse Oximetry (%) 98 01/29/25 11:04 Oxygen Delivery Method Room Air 01/29/25 11:04 Chest Pain MDM Narrative MDM Narrative:: 64-year-old male with a history of hyperlipidemia presents to the emergency room with a chief complaint of left sternal chest pain, shortness of breath, and elevated blood sugar reading x 1 day Patient data External records reviewed:: [facility] previous records Clinical information provided by:: patient Social determinants that could affect healthcare access:: none Patient has the following chronic illnesses:: Hyperlipidemia How is presenting disease/condition affected by chronic disease/condition?: uneffected by Evaluation data The following diagnostics were reviewed and interpreted by me:: lab results and radiology exam(s) Lab and/or radiology exams considered but not ordered:: Labs and radiology exams considered and ordered Interpretation Summary: Chest x-ray- Medications / Prescriptions Medications or Prescriptions considered but not ordered:: No medication given Medication administrations:: No medication given Consultations Consultation(s) initiated? (list below): No Diagnosis Chest Pain Differential Diagnosis: stable angina, unstable angina pectoris, atypical chest pain, st elevation myocardial infarction, costochondritis and chest pain Admission Indicated Admission indicated?: not indicated Admission Request Was there a request for admission?: No Disposition Plan Disposition Plan: Discharge Discharge Attestation Discharge Attestation: The patient and all family members were given an opportunity to ask questions and understood the discharge instructions. Discharge instructions specifically effects, indications for sooner follow up or return to the emergency department, and the expected course of current diagnosis. Patient condition: Stable Discharge Plan Prescriptions/Referrals Prescriptions/Med Rec: No Action atorvastatin 40 mg tablet 40 mg PO .qhs Patient Comments: TOME 1 TABLETA POR V A ORAL TODOS LOS D AT NOCHE hydrocodone-acetaminophen 5-325 mg tablet 1 tab PO BID MDD 2 PRN (Reason: pain) Qty: 10 0RF celecoxib 100 mg capsule 100 mg PO QDAY Patient Comments: TOME 1 C PSULA POR V A ORAL DOS VECES AL D A POR 7 D CUANDO SEA NECESARIO acetaminophen 500 mg tablet 500 mg PO Q6H PRN (Reason: pain) Patient/Caregiver Discharge Instructions Print Language: Danish
--- NOTE | 2025-01-29 11:18 | PD.EDRME ---
Rapid Medical Screening Exam E Arrival date/time: 01/29/25 10:51 64-year-old male with a history of hyperlipidemia presents to the emergency room with a chief complaint of left sternal chest pain, shortness of breath, and elevated blood sugar reading x 1 day I have greeted and performed a focused initial assessment of this patient. A comprehensive ED assessment and evaluation of the patient, analysis of all test results, and completion of the medical decision making process will be conducted by additional ED providers. Chief Complaint: Abdominal Pain Time Seen by Provider: 01/29/25 10:53 Vital signs: Vital Signs Temperature 97.7 F 01/29/25 11:04 Pulse Rate 103 H 01/29/25 11:04 Respiratory Rate 16 01/29/25 11:04 Blood Pressure 121/88 H 01/29/25 11:04 Pulse Oximetry (%) 98 01/29/25 11:04 Oxygen Delivery Method Room Air 01/29/25 11:04 Vital signs reviewed by provider: Yes Exam: Left sternal chest pain that radiates down his left arm. It is a 7 out of 10 in severity Clear bilateral lung sounds GCS of 15 Clinical Impression: STEMI/NSTEMI/hyperglycemia
--- NOTE | 2025-01-29 12:03 | PD.EDADULT ---
ED General RME/HPI General Chief complaint: Abdominal Pain Stated complaint: ABD PAIN, SOB, HIGH BS Time Seen by Provider: 01/29/25 10:53 Arrival date/time: 01/29/25 10:51 CC: Polydipsia polyuria fatigue headache, and a fog HPI ongoing for 1 month since he thought taking any of his diabetes medicine. Patient states his mouth is always dry. States he has intermittent chest pain currently is absent. Patient was seen 1 month ago for similar complaints was determined at that time that the patient's injectable medications were not sufficient and the patient was frustrated at how he was feeling and stopped taking all medications. Patient is awake alert oriented in mild discomfort but not in any acute distress. RME / HPI RME / HPI narrative: 01/29/25 10:51 64-year-old male with a history of hyperlipidemia presents to the emergency room with a chief complaint of left sternal chest pain, shortness of breath, and elevated blood sugar reading x 1 day I have greeted and performed a focused initial assessment of this patient. A comprehensive ED assessment and evaluation of the patient, analysis of all test results, and completion of the medical decision making process will be conducted by additional ED providers. Exam: Left sternal chest pain that radiates down his left arm. It is a 7 out of 10 in severity Clear bilateral lung sounds GCS of 15 Impression: STEMI/NSTEMI/hyperglycemia Related Data Home Medications ?Medication ?Instructions ?Recorded ?Confirmed atorvastatin 40 mg tablet 40 mg PO .qhs 04/26/24 07/19/24 acetaminophen 500 mg tablet 500 mg PO Q6H PRN pain 07/19/24 07/19/24 celecoxib 100 mg capsule 100 mg PO QDAY 07/19/24 07/19/24 Previous Rx's ?Medication ?Instructions ?Recorded hydrocodone 5 mg-acetaminophen 325 1 tab PO BID PRN pain #10 tabs 04/28/24 mg tablet Held on 07/19/24. Instructions: Resume on 07/20/24. Allergies Allergy/AdvReac Type Severity Reaction Status Date / Time No Known Allergies Allergy Verified 01/29/25 10:54 Review of Systems Review of Systems Narrative Review of Systems: GEN: No fever, no chills, no weight loss EYES: No discharge, no visual changes, no pain HEENT: No ear pain, no congestion, no sore throat PULM: No shortness of breath, no cough, no congestion CV: No chest pain, no dyspnea on exertion, no palpitations GI: No nausea, no vomiting, no diarrhea, no pain, no constipation : No frequency, no urgency, no dysuria MUSC/SKEL: No joint pain, no back pain SKIN: No rash PSYCH: No hallucinations, no depression HEME/LYMPH: No easy bleeding or bruising tendencies NEURO: + weakness, + headache Past Medical History Past Medical History NEUROLOGIC: Positive Neurological Disorders and Head Trauma; Negative Seizures CARDIAC: Positive Hypercholesterolemia and Hypertension; Negative Cardiac Disorders or Congestive Heart Failure RESPIRATORY: Negative Chronic Obstructive Pulmonary Disease (COPD), Asthma or Bronchitis GASTROINTESTINAL: Positive Gastrointestinal Disorders, Gall Bladder Disease, Gastrointestinal Bleed, Crohn's Disease and Hiatal Hernia; Negative Hepatitis or Gastroesophageal Reflux Disease GENITOURINARY: Positive Genitourinary Disorders, Kidney Stones, Inguinal Hernia and Benign Prostatic Hyperplasia; Negative Renal Disease MUSCULOSKELETAL: Negative Musculoskeletal Disorders or Fractures ENT: Positive Head Trauma ENDOCRINE: Positive Diabetes Mellitus Type 2; Negative Endocrine Disorders, Diabetes Mellitus Type 1 or Hyperthyroidism HEMATOLOGIC: Negative Blood Disorders or Sickle Cell Disease PSYCHO/SOCIAL: Positive Depression and Anxiety OTHER HISTORY: Negative Hospitalization, Falls, Blood Transfusions, Blood Transfusion Reaction, Anesthesia Reactions, Chicken Pox, Measles, Mumps or Cancer Family History FAMILY HISTORY: Positive Family Cancer; Negative Family Cardiac Disorders Surgical History SURGICAL: Negative Cardiac Surgery, Tonsillectomy, Joint Replacement or Vasectomy Social History SMOKING STATUS: Never smoker ED Exam Narrative Physical exam: [General: Obese, in mild discomfort but not acute distress Head normocephalic HEENT: Eyes pupils are PERRLA EOMs are intact mouth pink dry membranes uvula is midline swallow symmetrical phonation is normal. All other subsystems HEENT are within acceptable limits Neck is supple nontender Chest equal chest rise nontender to palpation Respiratory: Tachypneic, clear to auscultation no wheezes crackles or rubs CV: Rate rhythm is regular, tachycardic, no murmurs rubs or clicks Abdomen is distended secondary to body habitus soft nontender no masses positive bowel sounds all 4 quadrants Back: No CVA tenderness no spinous process tenderness from cervical spine thoracic and lumbar spine Skin: Intact no petechiae rash induration ulceration or crepitus Extremities: Moving all extremities against resistance cap refill less than 2 seconds neurosensory intact. No lower extremity edema Neuro: Awake alert oriented x3 Glascow coma 15 no focal deficits] Course Course Course Narrative: Repeat CMP after 3 L of LR so the patient's gap is unchanged. Patient's laboratory findings clinical presentation and imaging discussed with resident for Dr. Bangura, who agrees to accept the patient for hyperglycemia Quality Measures none Orders Category Date Time Status EKG (ED ONLY) *Do not use* NOW Care 01/29/25 10:56 Completed Glucose [Bedside Blood Glucose] Q1HR Care 01/29/25 12:57 Active EKG (ED Only) Stat Exams 01/29/25 10:56 Draft XR chest 1V portable Stat Exams 01/29/25 11:07 Completed B-Type Natriuretic Peptide Stat Lab 01/29/25 11:46 Completed Beta Hydroxybutyrate Stat Lab 01/29/25 11:46 Completed CBC Stat Lab 01/29/25 11:46 Completed CMP [Comprehensive Metabolic Panel] Stat Lab 01/29/25 14:48 Completed Comprehensive Metabolic Panel Stat Lab 01/29/25 11:46 Completed Drug Screen,Urine Stat Lab 01/29/25 12:05 Completed Free T4 (Free Thyroxine) Stat Lab 01/29/25 11:46 Completed Magnesium Stat Lab 01/29/25 11:46 Completed Partial Thromboplastin Time Stat Lab 01/29/25 11:46 Completed Prothrombin Time with INR Stat Lab 01/29/25 11:46 Completed TSH [Thyroid Stimulating Hormone] Stat Lab 01/29/25 11:46 Completed Troponin I Stat Lab 01/29/25 11:46 Completed Urinalysis, C/S if Indicated Stat Lab 01/29/25 12:05 Completed VBG [Venous Blood Gas] Stat Lab 01/29/25 11:46 Completed Ringers Lactated 1000 ml [Lactated Ringers] 1,000 ml Med 01/29/25 11:59 Discontinued IV 999 mls/hr Ringers Lactated 1000 ml [Lactated Ringers] 1,000 ml Med 01/29/25 11:59 Discontinued IV 999 mls/hr Ringers Lactated 1000 ml [Lactated Ringers] 1,000 ml Med 01/29/25 13:10 Discontinued IV 999 mls/hr Vital Signs Vital signs: Vital Signs Temperature 97.7 F 01/29/25 11:04 Pulse Rate 103 H 01/29/25 11:04 Respiratory Rate 16 01/29/25 11:04 Blood Pressure 121/88 H 01/29/25 11:04 Pulse Oximetry (%) 98 01/29/25 11:04 Oxygen Delivery Method Room Air 01/29/25 11:04 Discharge Plan Plan Patient Disposition: Xfer [employer] Acute Prescriptions/Referrals Prescriptions/Med Rec: No Action atorvastatin 40 mg tablet 40 mg PO .qhs Patient Comments: TOME 1 TABLETA POR V A ORAL TODOS LOS D AT NOCHE hydrocodone-acetaminophen 5-325 mg tablet 1 tab PO BID MDD 2 PRN (Reason: pain) Qty: 10 0RF celecoxib 100 mg capsule 100 mg PO QDAY Patient Comments: TOME 1 C PSULA POR V A ORAL DOS VECES AL D A POR 7 D CUANDO SEA NECESARIO acetaminophen 500 mg tablet 500 mg PO Q6H PRN (Reason: pain) Referrals: Deep Saucedo MD [Primary Care Provider, Family Practice] - In 1 week Problem List Clinical Impression: Hyperglycemia Patient/Caregiver Discharge Instructions Print Language: Finnish Stand Alone Forms: Mra Award Info., Patient Portal Info Letter PA/PRINTING TECHNICIAN Supervising Physician PA/PRINTING TECHNICIAN Supervising Physician: Marek Brar ENP [facility] Clinical Information Provided by: patient Medical Records reviewed [facility] Meds/Rx considered, not ordered None Labs/Rad/Tests considered, not ordered None Chronic Illness/Social Conditions Explain: Poorly controlled diabetic EKG Interpretation EKG #1: EKG Interpretation: EKG performed at 1107 shows a ventricular rate of 107 ND interval 143 QRS of 96 QTc of 374 this is sinus tachycardia. Labs Labs: interpreted by nh Lab(s) Interpretation(s): CBC shows a mild leukocytosis 11.9 no anemia or thrombocytopenia Coags within acceptable limits VBG shows a pH of 7.32 pCO2 36 pO2 of 36 base deficit of 7. Sodium of 135 potassium of 5.3 CO2 of 15.9 gap of 18 creatinine of 1.6 glucose of 585 no transaminitis or T. bili elevation. Troponin is negative BNP is negative beta hydroxy at 6.1. Medication Administration(s) Medication Administration History Discontinued Medications Lactated Ringer's (Lactated Ringers) 1,000 mls @ 999 mls/hr IV .Q1H1M ONE Stop: 01/29/25 12:59 Last Infusion: 01/29/25 13:09 Dose: Infused Documented By: Admin: 01/29/25 12:07 Dose: 999 mls/hr Documented By: ERYN Lactated Ringer's (Lactated Ringers) 1,000 mls @ 999 mls/hr IV .Q1H1M ONE Stop: 01/29/25 12:59 Last Infusion: 01/29/25 13:10 Dose: Infused Documented By: Admin: 01/29/25 12:08 Dose: 999 mls/hr Documented By: REYN Lactated Ringer's (Lactated Ringers) 1,000 mls @ 999 mls/hr IV .Q1H1M ONE Stop: 01/29/25 14:10 Last Infusion: 01/29/25 14:51 Dose: Infused Documented By: Admin: 01/29/25 13:20 Dose: 999 mls/hr Documented By: ERYN
[2025-01-29 12:04] LABS: Base Excess, Venous -7 (-3-3); O2 Saturation, Venous 72 % (96-97); PCO2, Venous 36 mmHg (36-56); PO2, Venous 36 mmHg (15-58); pH, Venous 7.32 (7.33-7.66)
[2025-01-29] MEDS: RINGERS LACTATED 1000 ML 1,000 ML 999 ML IV ×3 (12:07→13:20)
[2025-01-29 12:10] LABS: Beta Hydroxybutyrate 6.1 mmol/L (<0.6)
[2025-01-29 12:10] LABS: Collection Type, Urine Clean Catch; Squamous Epithelial Cell,Urine 0 /hpf (0-5); WBC,Urine 0 /hpf (0-5)
[2025-01-29 12:11] LABS: Basophils # (Auto) 0.0 Thou/mm3 (0.0-0.2); Basophils % (Auto) 0 % (0-2.5); Eosinophils # (Auto) 0.0 Thou/mm3 (0.0-0.5); Eosinophils % (Auto) 0 % (0-10); Hematocrit 47.3 % (41.0-53.0); Hemoglobin 16.2 g/dL (13.5-16.0); Immature Granulocytes Auto 0.05 Thou/mm3 (0.00-0.00); Lymphocytes # (Auto) 1.9 Thou/mm3 (1.0-4.8); Lymphocytes % (Auto) 16 % (10-50); Mean Corpuscular HGB Conc 34.2 g/dl (31.0-37.0); Mean Corpuscular Hemoglobin 30.0 pg (25.0-35.0); Mean Corpuscular Volume 88 fL (80-100); Monocytes # (Auto) 0.5 Thou/mm3 (0.0-0.8); Monocytes % (Auto) 4 % (0-12); Neutrophils # (Auto) 9.4 Thou/mm3 (1.8-7.7); Neutrophils % (Auto) 79 % (37-80); Nucleated Red Blood Cell # 0.00 Thou/mm3 (0.00-0.00); Nucleated Red Blood Cell % 0 /100 WBC (0); Platelet Count 192 Thou/mm3 (140-440); RDW Standard Deviation 38.5 fL (35.1-43.9); Red Blood Count 5.40 Miln/mm3 (4.50-5.90); White Blood Count 11.9 Thou/mm3 (3.8-10.6)
[2025-01-29 12:33] LABS: INR 1.0 (0.9-1.3); Partial Thromboplastin Time 27.9 Seconds (22.0-36.0); Prothrombin Time 10.3 Seconds (9.0-12.2)
[2025-01-29 12:34] LABS: B-Type Natriuretic Peptide < 20 pg/mL (0-100)
[2025-01-29 12:45] LABS: Bilirubin,Urine Negative (Negative); Blood,Urine Negative (Negative); Budding Yeast,Urine Present; Clarity,Urine Clear (Clear/Hazy); Culture Indicated,Urine Not Indicated; Glucose, Urine 4+ (Negative); Ketones,Urine 2+ (Negative); Leukocyte Esterase,Urine Negative (Negative); Nitrite,Urine Negative (Negative); PH,Urine 5.5 (5.0-7.0); Protein,Urine Negative (Neg - Trace); RBC,Urine 3 /hpf (0-3); Specific Gravity,Urine 1.037 (1.001-1.035); Urobilinogen,Urine Negative mg/dL (0.0-1.0)
[2025-01-29 12:47] LABS: Amphetamine/Methamp Scrn,U Negative (Negative); Barbiturate Screen,Urine Negative (Negative); Benzodiazepines Screen,Urine Negative (Negative); Benzoylecgonine Screen, Ur Negative (Negative); Fentanyl Screen,Urine Negative (Negative); Opiate Screen,Urine Negative (Negative); THC Screen,Urine Negative (Negative)
[2025-01-29 12:57] LABS: Color,Urine Lt-Yellow (Lt Yel-Yel)
[2025-01-29 13:01] LABS: Alanine Aminotransferase 39 U/L (10-49); Albumin, Serum 4.7 gm/dL (3.4-4.8); Albumin/Globulin Ratio 1.7 (1.2-2.2); Alkaline Phosphatase 170 U/L (46-116); Anion Gap 18 (7-16); Aspartate Amino Transferase 23 U/L (0-34); BUN/Creatinine Ratio 10 Ratio (12-20); Bilirubin,Total 0.8 mg/dL (0.3-1.2); Blood Urea Nitrogen 16 mg/dL (9-23); Calcium 10.0 mg/dL (8.3-10.6); Calcium (Corrected) 10.0 mg/dL (8.5-10.1); Carbon Dioxide 15.9 mMol/L (20.0-31.0); Chloride 101 mMol/L (98-107); Creatinine (Component) 1.6 mg/dL (0.6-1.3); Estimated Creatinine Clearance 40.1 mL/min (>60); Free T4 (Free Thyroxine) 1.57 ng/dL (0.89-1.76); Globulin 2.7 gm/dL (2.3-3.5); Magnesium 2.2 mg/dL (1.6-2.6); Osmolality,Calculated 298 (275-295); Potassium 5.3 mMol/L (3.4-5.1); Sodium 135 mMol/L (136-145); Thyroid Stimulating Hormone 0.56 uIU/mL (0.55-4.78); Total Protein 7.4 gm/dL (5.7-8.2); Troponin I < 0.020 ng/mL (0.0-0.045); eGFR 48 See Note
[2025-01-29 13:05] LABS: Glucose 585 mg/dL (74-106)
[2025-01-29 15:57] LABS: Alanine Aminotransferase 33 U/L (10-49); Albumin, Serum 4.0 gm/dL (3.4-4.8); Albumin/Globulin Ratio 1.8 (1.2-2.2); Alkaline Phosphatase 142 U/L (46-116); Anion Gap 18 (7-16); Aspartate Amino Transferase 21 U/L (0-34); BUN/Creatinine Ratio 13 Ratio (12-20); Bilirubin,Total 0.7 mg/dL (0.3-1.2); Blood Urea Nitrogen 16 mg/dL (9-23); Calcium 9.4 mg/dL (8.3-10.6); Calcium (Corrected) 9.4 mg/dL (8.5-10.1); Carbon Dioxide 19.4 mMol/L (20.0-31.0); Chloride 105 mMol/L (98-107); Creatinine (Component) 1.2 mg/dL (0.6-1.3); Estimated Creatinine Clearance 53.5 mL/min (>60); Globulin 2.2 gm/dL (2.3-3.5); Glucose 399 mg/dL (74-106); Osmolality,Calculated 301 (275-295); Potassium 4.8 mMol/L (3.4-5.1); Sodium 142 mMol/L (136-145); Total Protein 6.2 gm/dL (5.7-8.2); eGFR > 60 See Note
[2025-01-29] MEDS: RINGERS LACTATED 1000 ML 1,000 ML 100 ML IV (17:08)
--- NOTE | 2025-01-29 17:32 | ESHP_ITS ---
<Statement entered by Radha Villareal MD - 01/30/25 15:55> Patient was seen and examined at bedside. I agree on the assessment and plan on this note as documented by resident Dr Ted Doherty DO PGY1. 64-year-old male with past medical history of hypertension hyperlipidemia and diabetes mellitus who was recently diagnosed with diabetes 6 months ago, presented to [facility] emergency department with a chief complaint of headache fatigue and polydipsia. Patient in the ER noted to have elevated beta hydroxybutyrate 6.1, VBG pH 7.32, anion gap 18, patient was given 3 L LR bolus in the ED, assessed in ED able to eat sandwich, we will admit patient to telemetry for management of mild to moderate DKA, patient will be started on IV maintenance fluids LR, continue diet, glucose checks every 4 hours with lispro 3 units every 4 hours along with sliding scale insulin as needed. We will continue to check renal panel VBG magnesium every 4 hours to assess patient's anion gap. Will follow hemoglobin A1c in a.m., dietitian consulted, will commercial counsel on diabetic diet in AM. Case discussed with attending Dr. Reji Villareal MD PGY-2 Documentation for date of: 01/29/25 HPI History of Present Illness History of present illness: History of Present Illness: Dedrick Benjamin is 64y male with PMH of HTN, HLD, and Diabetes, presented to the ED on 01/29/2025 for worsening headache, fatigue and polydipsia. The patient began ozempic 0.5 mg one month ago. Instead of administering the medication once weekly as prescribed, he injected it daily. Shortly thereafter, he developed headaches, nausea, polydipsia, and urinary frequency (voiding approximately every five minutes). According to the patient, he had not been diagnosed with diabetes at that time, however, based on chart review, his HbA1c was 6.7 on 04/28/2024 and 11.1 on 01/03/2025. He noted that ozempic had been prescribed by his pcp for weight managment. He ran out of Ozempic approximately one week ago, but continues to experience similar symptoms. He has presented to the ED for the same concerns last few weeks. The patient reports no history of insulin use. He also noted he has intermittent bright red bloody stools. Patient will be admitted for managment of mild DKA. ED course: Vitals: BP 174/81, OR 77, RR 15, temperature 98.0 F, 99% O2 saturation on room air. Labs: WBC 11.9, Hgb 16.2, sodium 135, potassium 5.3, HCO3 15.9, anion gap 18, Cr: 0.6, eGFR 48, glucose 585, lactic acid 1.8, corrected calcium 10.0, magnesium 2.2, ALP 170, troponin<0.02, BNP<20, albumin 4.7, beta hydroxybutyrate 6.1. UA: clear yellow urine,: Urine glucose 4+, urine ketones 2+, urine blood negative, urine protein negative, urine nitrate negative, urine leukocyte esterase negative, urine WBC 0, urine bacteria none. Urine yeast present. VBG pH 7.32, VBG pCO2 36, VBG pCO2 36. In ED, patient was given IV bolus LR 1 L x 3. Medical history: As stated above Surgical history: Cholecystectomy, appendectomy, hernia repair Allergies: NKDA Medications: Pending official med rec Family history: Noncontributory Social history: Denies smoking cigarettes, drinking alcohol or using other illicit drugs Review of Systems Review of Systems Narrative Review of Systems: All 12 systems assessed and the patient denies unless otherwise stated in HPI Exam Vital Signs Temp Pulse Resp BP Pulse Ox O2 Del Method O2 Flow Rate 98.0 F 77 15 174/81 H 99 Room Air 1 01/29/25 17:09 01/29/25 17:09 01/29/25 17:09 01/29/25 17:09 01/29/25 17:09 01/29/25 17:09 01/29/25 12:08 Narrative Exam General: Slight distress, well nourished, AAO x3 Eye: PERRL, EOMI, normal conjunctiva, no scleral icterus HENT: Normocephalic, atraumatic, hearing intact to conversation at normal volume, moist oral mucosa Neck: Supple, non-tender, no JVD, no lymphadenopathy Lungs: Non-labored respirations, symmetric chest rise, Clear to auscultate bilaterally, No wheezing, rhonchi, crackles Heart: Peripheral pulses intact bilaterally, Regular Rate and Rhythm. Abdomen: Soft, non-distended, no palpable masses, diffuse abdominal tenderness Musculoskeletal: Normal range of motion and strength, No cyanosis or edema, No visible joint swelling Skin: Skin is warm, dry, no rashes or lesions. Psychiatric: Cooperative, appropriate mood and affect, Awake and alert, not agitated Neuro: Cranial nerves II-XII grossly intact. Strength 5/5 throughout. Sensations intact to light touch. Results: Labs 01/30/25 05:25 01/30/25 05:25 Labs: Short CBC 01/29/25 Range/Units 11:46 WBC 11.9 H (3.8-10.6) Thou/mm3 Hgb 16.2 H (13.5-16.0) g/dL Hct 47.3 (41.0-53.0) % Plt Count 192 D (140-440) Thou/mm3 BMP 01/29/25 01/29/25 11:46 14:48 Sodium 135 L 142 Potassium 5.3 H 4.8 D Chloride 101 105 Carbon Dioxide 15.9 L 19.4 L BUN 16 16 Creatinine 1.6 H 1.2 Glucose 585 H* 399 H D Calcium 10.0 9.4 Cardiac Enzymes 01/29/25 Range/Units 11:46 Troponin I < 0.020 (0.0-0.045) ng/mL Liver Function 01/29/25 01/29/25 Range/Units 11:46 14:48 Total Bilirubin 0.8 0.7 (0.3-1.2) mg/dL AST 23 21 (0-34) U/L ALT 39 33 (10-49) U/L Alkaline Phosphatase 170 H 142 H D (46-116) U/L Albumin 4.7 4.0 D (3.4-4.8) gm/dL Urine 01/29/25 Range/Units 12:05 Urine Color Lt-Yellow (Lt Yel-Yel) Urine Clarity Clear (Clear/Hazy) Urine pH 5.5 (5.0-7.0) Ur Specific [place] 1.037 H (1.001-1.035) Urine Protein Negative (Neg - Trace) Urine Glucose (UA) 4+ A (Negative) ABG Interpretation ABG results: 01/29/25 11:46 VBG pH 7.32 L VBG pCO2 36 VBG pO2 36 VBG Base Excess -7 L Quality Measures Quality Measures none Medications Home Medications and Allergies Home Medications ?Medication ?Instructions ?Recorded ?Confirmed ?Type atorvastatin 40 mg tablet 40 mg PO .qhs 04/26/2401/30 History acetaminophen 500 mg tablet 500 mg PO Q6H PRN pain 10/0601/30/25 History celecoxib 100 mg capsule 100 mg PO QDAY 07/19/2401/13 History tamsulosin 0.4 mg capsule (Flomax) 0.4 mg PO Q12H 01/1301/30/25 History Allergies Allergy/AdvReac Type Severity Reaction Status Date / Time No Known Allergies Allergy Verified 01/29/25 10:54 Visit Medications Acetaminophen (Acetaminophen 325 Mg Tablet) 650 mg PO Q6H PRN PRN Reason: Fever >101.5 Stop: 02/28/25 17:14 Dextrose (Dextrose 50%-Water Inj 50 Ml Syringe) 25 ml IV Q15MIN PRN PRN Reason: BG 50-70 responsive npo pt Stop: 02/28/25 17:24 Dextrose (Dextrose 50%-Water Inj 50 Ml Syringe) 50 ml IV Q15MIN PRN PRN Reason: BG <50 OR BG <70 & pt unresponsive Stop: 02/28/25 17:24 Glucagon (Glucagon Inj 1 Mg Vial) 1 mg IM Q15MIN PRN PRN Reason: BG <70, and no IV access Heparin Sodium (Porcine) (Heparin Sod Inj 5000 Unit/Ml Vial) 5,000 unit SC Q8HR [facility] Stop: 02/12/25 17:29 Lactated Ringer's (Lactated Ringers) 1,000 mls @ 100 mls/hr IV .Q10H [facility] Stop: 02/28/25 16:44 Last Admin: 01/29/25 17:08 Dose: 100 mls/hr Lactated Ringer's (Lactated Ringers) 1,000 mls @ 75 mls/hr IV .[id number] [facility] Stop: 02/28/25 17:14 Insulin Degludec (Insulin Degludec 5 Unit/0.05 Ml (Per 5 Units)) 18 unit SC QDAY [facility] Stop: 02/28/25 17:24 Insulin Human Lispro (Insulin Lispro (Admelog) 1 Unit/0.01 Ml Unit) 0 unit SC Q4H [facility]; Protocol Stop: 02/28/25 17:29 Insulin Human Lispro (Insulin Lispro (Admelog) 1 Unit/0.01 Ml Unit) 3 unit SC Q4H [facility] Stop: 02/28/25 17:29 Ondansetron HCl (Ondansetron Inj 2 Mg/Ml Inj 2 Ml) 4 mg IVP Q6H PRN; Protocol PRN Reason: NAUSEA OR VOMITING Stop: 02/28/25 17:14 Pantoprazole Sodium (Pantoprazole Inj 40 Mg Vial) 40 mg IVP QDAY [facility] Stop: 03/01/25 08:59 Sennosides (Senna Tablet) 1 tab PO QDAY [facility]; Protocol Stop: 02/28/25 17:29 Discontinued Medications Lactated Ringer's (Lactated Ringers) 1,000 mls @ 999 mls/hr IV .Q1H1M [facility] Stop: 01/29/25 12:59 Last Infusion: 01/29/25 13:09 Dose: Infused Lactated Ringer's (Lactated Ringers) 1,000 mls @ 999 mls/hr IV .Q1H1M ONE Stop: 01/29/25 12:59 Last Infusion: 01/29/25 13:10 Dose: Infused Lactated Ringer's (Lactated Ringers) 1,000 mls @ 999 mls/hr IV .Q1H1M [facility] Stop: 01/29/25 14:10 Last Infusion: 01/29/25 14:51 Dose: Infused Assessment & Plan Plan Dedrick Benjamin is 64y male with PMH of HTN, HLD, and Diabetes, presented to the ED on 01/29/2025 for worsening headache, fatigue and polydipsia. Patient will be admitted for managment of mild DKA. #Diabetic Ketoacidosis #HAGMA #Insulin Dependent Type 2 Diabetes -On admission, Glucose level of 585, Acidosis (VBG pH 7.32, AG 18, HCO3:15.9). Ketosis (beta hydroxybutyrate 6.1) -Bedside Glucose level currently downtrending. Currently 399 -UA clear yellow urine,: Urine glucose 4+, urine ketones 2+, urine blood negative, urine protein negative, urine nitrate negative, urine leukocyte esterase negative, urine WBC 0, urine bacteria none. Urine yeast present. -1 month of worsening headache and fatigue. -Per patient, he does not take insulin or any other medications, except ozempic which he has been using it everyday for last month. However, his previous records show that he was prescribed multiple other medications. -HbA1c was 6.7 on 04/28/2024 and 11.1 on 01/03/2025. Plan: -Continue LR 75ml/hr IV1L. -Glucose check q4hr -Insulin Degludec 18 units qd, Insulin lispro 3 units q4hr. -SSI q4hr -HbA1c, PTT, PT w/INR pending, Mag q4hr, Phos q4hr, Renal function panel q4hr, VBG q4hr, -Neuro check q4hr -medical imaging technician q4hr -Daily weight, Strint I&Os -Dietitian referral -Diet carb consistent diet. #HTN -Labetalol 10mg IV prn #HLD -Lipid panel pending. Disposition: Tele Diet: Diet carb consistent diet. GI prophylaxis: IV protonix 40mg qd DVT prophylaxis: Heparin 5000 units SC q8hr Code: FULL Assessment and plan discussed with my attending physician Dr. Bangura and Dr. Villareal (PGY-2) Dr. oDherty (PGY-1) - Internal medicine resident Attending Provider Attestation/Addendum I have seen and examined the patient. I was physically present for the reinoso portions of the services provided including history, physical exam, diagnosis, treatment plans and orders. I agree with assessment and plan of care as documented by residents. After examination of the patient and review of the clinical data I feel that this patient needs admission to the hospital for further treatment/evaluation. Patient is a 64 years old male with past medical history of hypertension, diabetes mellitus, hyperlipidemia who presented to the ED with complaint of worsening headaches, fatigue and polydipsia. In the ED, his WBC count was 11.9, potassium 5.3, bicarbonate 15.9, anion gap 18, glucose 585, beta hydroxybutyrate 6.1. VBG showed pH of 7.32 with pCO2 36. At the time of examination, patient denied any abdominal pain, nausea or vomiting. Has been started on IV fluid bolus. We will admit the patient for management of mild DKA. We will give him additional IV fluid bolus and start on maintenance IV hydration. Started on insulin degludec along with Premeal lispro and sliding scale. We will check his renal function, electrolytes and VBG every 4 hour and monitor his anion gap closely. If anion gap worsens or patient starts having worsening symptoms, we will consider transferring to ICU. Even though this this note was carefully revised there may still be minor errors in catering staff member due to voice recognition software. Reji Bangura MD
[2025-01-29 17:42] LABS: Lactate (Lactic Acid) 1.8 mMol/L (0.4-2.0)
[2025-01-29] MEDS: INSULIN DEGLUDEC 5 UNIT/0.05 ML (PER 5 UNITS) 18 UNIT SC (18:07)
[2025-01-29] MEDS: INSULIN LISPRO (AdmeLOG) 1 UNIT/0.01 ML UNIT SC ×2 (18:09→22:55)
[2025-01-29] MEDS: INSULIN LISPRO (AdmeLOG) 1 UNIT/0.01 ML UNIT 3 UNIT SC ×2 (18:09→22:56)
[2025-01-29 18:11] LABS: Base Excess, Venous 20 (-3-3); O2 Saturation, Venous 86 % (96-97); PCO2, Venous 35 mmHg (36-56); PO2, Venous 48 mmHg (15-58); pH, Venous 7.37 (7.33-7.66)
[2025-01-29] MEDS: HEPARIN SOD INJ 5000 UNIT/ML VIAL SC (18:11)
[2025-01-29 18:42] LABS: Albumin, Serum 4.0 gm/dL (3.4-4.8); Anion Gap 18 (7-16); BUN/Creatinine Ratio 16 Ratio (12-20); Blood Urea Nitrogen 18 mg/dL (9-23); Calcium 9.0 mg/dL (8.3-10.6); Calcium (Corrected) 9.0 mg/dL (8.5-10.1); Carbon Dioxide 18.3 mMol/L (20.0-31.0); Cardiac Risk Estimate 4.2 RATIO (4.0-6.7); Chloride 106 mMol/L (98-107); Cholesterol 167 mg/dL (132-200); Creatinine (Component) 1.1 mg/dL (0.6-1.3); Estimated Creatinine Clearance 61.7 mL/min (>60); Glucose 384 mg/dL (74-106); HDL Cholesterol 40 mg/dL (40-60); LDL Cholesterol,Calculated 102 mg/dL (0-130); Lipase 43 U/L (12-53); Magnesium 1.8 mg/dL (1.6-2.6); Osmolality,Calculated 301 (275-295); Phosphorous 3.0 mg/dL (2.4-5.1); Potassium 4.3 mMol/L (3.4-5.1); Sodium 142 mMol/L (136-145); Triglycerides 125 mg/dL (30-150); Troponin I < 0.020 ng/mL (0.0-0.045); eGFR > 60 See Note
--- NOTE | 2025-01-29 20:53 | PC.NURSE ---
REPORT GIVEN TO RASHAWN CHRISTIAN AT TELE
[2025-01-29 22:02] LABS: Base Excess, Venous -1 (-3-3); O2 Saturation, Venous 88 % (96-97); PCO2, Venous 36 mmHg (36-56); PO2, Venous 52 mmHg (15-58); pH, Venous 7.41 (7.33-7.66)
[2025-01-29 22:31] LABS: Albumin, Serum 3.9 gm/dL (3.4-4.8); Anion Gap 14 (7-16); BUN/Creatinine Ratio 16 Ratio (12-20); Blood Urea Nitrogen 16 mg/dL (9-23); Calcium 8.9 mg/dL (8.3-10.6); Calcium (Corrected) 9.0 mg/dL (8.5-10.1); Carbon Dioxide 20.4 mMol/L (20.0-31.0); Chloride 107 mMol/L (98-107); Creatinine (Component) 1.0 mg/dL (0.6-1.3); Estimated Creatinine Clearance 67.9 mL/min (>60); Glucose 305 mg/dL (74-106); Magnesium 1.8 mg/dL (1.6-2.6); Osmolality,Calculated 293 (275-295); Phosphorous 2.4 mg/dL (2.4-5.1); Potassium 4.0 mMol/L (3.4-5.1); Sodium 141 mMol/L (136-145); eGFR > 60 See Note
[2025-01-30] VITALS (8 sets, daily range): BP systolic 117–146; BP diastolic 63–87; PULSE 63–97; RESP 16–95; TEMP 35.9–36.7; O2SAT 93–96; BMI 29.0
--- NOTE | 2025-01-30 00:05 | PC.NURSE ---
Attempted to do med rec, however, patient unsure on medication name and dosage. He stated his friend would bring in his home meds tomorrow around 9 AM. Will pass information onto next oncoming nurse.
[2025-01-30 02:25] LABS: Base Excess, Venous 1 (-3-3); O2 Saturation, Venous 90 % (96-97); PCO2, Venous 39 mmHg (36-56); PO2, Venous 54 mmHg (15-58); pH, Venous 7.43 (7.33-7.66)
[2025-01-30 02:43] LABS: Albumin, Serum 3.6 gm/dL (3.4-4.8); Anion Gap 11 (7-16); BUN/Creatinine Ratio 22 Ratio (12-20); Blood Urea Nitrogen 20 mg/dL (9-23); Calcium 8.5 mg/dL (8.3-10.6); Calcium (Corrected) 8.8 mg/dL (8.5-10.1); Carbon Dioxide 24.3 mMol/L (20.0-31.0); Chloride 109 mMol/L (98-107); Creatinine (Component) 0.9 mg/dL (0.6-1.3); Estimated Creatinine Clearance 75.4 mL/min (>60); Glucose 174 mg/dL (74-106); Magnesium 1.7 mg/dL (1.6-2.6); Osmolality,Calculated 293 (275-295); Phosphorous 2.8 mg/dL (2.4-5.1); Potassium 3.6 mMol/L (3.4-5.1); Sodium 144 mMol/L (136-145); eGFR > 60 See Note
[2025-01-30] MEDS: RINGERS LACTATED 1000 ML 1,000 ML 100 ML IV ×2 (02:48→13:54)
[2025-01-30 05:31] LABS: Base Excess, Venous 2 (-3-3); O2 Saturation, Venous 89 % (96-97); PCO2, Venous 39 mmHg (36-56); PO2, Venous 51 mmHg (15-58); pH, Venous 7.43 (7.33-7.66)
[2025-01-30 05:44] LABS: Basophils # (Auto) 0.0 Thou/mm3 (0.0-0.2); Basophils % (Auto) 1 % (0-2.5); Eosinophils # (Auto) 0.1 Thou/mm3 (0.0-0.5); Eosinophils % (Auto) 2 % (0-10); Hematocrit 38.8 % (41.0-53.0); Hemoglobin 13.4 g/dL (13.5-16.0); Immature Granulocytes Auto 0.02 Thou/mm3 (0.00-0.00); Lymphocytes # (Auto) 3.1 Thou/mm3 (1.0-4.8); Lymphocytes % (Auto) 39 % (10-50); Mean Corpuscular HGB Conc 34.5 g/dl (31.0-37.0); Mean Corpuscular Hemoglobin 30.0 pg (25.0-35.0); Mean Corpuscular Volume 87 fL (80-100); Monocytes # (Auto) 0.6 Thou/mm3 (0.0-0.8); Monocytes % (Auto) 8 % (0-12); Neutrophils # (Auto) 4.0 Thou/mm3 (1.8-7.7); Neutrophils % (Auto) 51 % (37-80); Nucleated Red Blood Cell # 0.00 Thou/mm3 (0.00-0.00); Nucleated Red Blood Cell % 0 /100 WBC (0); Platelet Count 183 Thou/mm3 (140-440); RDW Standard Deviation 38.5 fL (35.1-43.9); Red Blood Count 4.47 Miln/mm3 (4.50-5.90); White Blood Count 7.9 Thou/mm3 (3.8-10.6)
[2025-01-30] MEDS: HEPARIN SOD INJ 5000 UNIT/ML VIAL SC ×3 (05:56→21:35)
[2025-01-30 06:02] LABS: INR 1.0 (0.9-1.3); Partial Thromboplastin Time 24.9 Seconds (22.0-36.0); Prothrombin Time 10.3 Seconds (9.0-12.2)
[2025-01-30 06:05] LABS: Beta Hydroxybutyrate 1.6 mmol/L (<0.6)
[2025-01-30 06:10] LABS: Glucose Estimated Average 355 mg/dL (80-131); Hemoglobin A1C > 14.0 % Hgb (4.8-6.0)
[2025-01-30 06:20] LABS: Alanine Aminotransferase 37 U/L (10-49); Albumin, Serum 3.4 gm/dL (3.4-4.8); Albumin/Globulin Ratio 1.5 (1.2-2.2); Alkaline Phosphatase 122 U/L (46-116); Anion Gap 10 (7-16); Aspartate Amino Transferase 32 U/L (0-34); BUN/Creatinine Ratio 16 Ratio (12-20); Bilirubin,Total 0.7 mg/dL (0.3-1.2); Blood Urea Nitrogen 14 mg/dL (9-23); Calcium 9.0 mg/dL (8.3-10.6); Calcium (Corrected) 9.5 mg/dL (8.5-10.1); Carbon Dioxide 24.9 mMol/L (20.0-31.0); Chloride 109 mMol/L (98-107); Creatinine (Component) 0.9 mg/dL (0.6-1.3); Estimated Creatinine Clearance 74.9 mL/min (>60); Globulin 2.3 gm/dL (2.3-3.5); Glucose 148 mg/dL (74-106); Magnesium 1.6 mg/dL (1.6-2.6); Osmolality,Calculated 290 (275-295); Potassium 3.4 mMol/L (3.4-5.1); Sodium 144 mMol/L (136-145); Total Protein 5.7 gm/dL (5.7-8.2); eGFR > 60 See Note
[2025-01-30] MEDS: Magnesium Sulfate 4 GM Ivpb 4 GM/50 ML BAG IV (07:52)
[2025-01-30] MEDS: INSULIN LISPRO (AdmeLOG) 1 UNIT/0.01 ML UNIT 3 UNIT SC ×3 (07:52→17:14)
[2025-01-30] MEDS: MAGNESIUM OXIDE 400 MG TABLET PO (08:35)
[2025-01-30] MEDS: INSULIN DEGLUDEC 5 UNIT/0.05 ML (PER 5 UNITS) 18 UNIT SC (08:36)
[2025-01-30] MEDS: INSULIN LISPRO (AdmeLOG) 1 UNIT/0.01 ML UNIT SC ×3 (11:22→21:35)
[2025-01-30] MEDS: ACETAMINOPHEN 325 MG TABLET 650 MG PO (15:03)
--- NOTE | 2025-01-30 15:25 | ESPR_ITS ---
<Statement entered by Kayden Boyd MD - 01/30/25 16:17> Patient seen and examined at bedside. I discussed and supervised with the physician internist physician who took care of this patient. I personally saw and examined the patient. I agree with most of the assessment and plan. Anion gap closed, patient tolerating oral diet. Optimizing inulin regiment prior to discharge. Plan of care discussed with attending Dr. Bangura. Kayden Boyd MD PGY-2 Documentation for date of: 01/30/25 Subjective Subjective Interval history: Today, the patient provided information that differs significantly from what he reported at the time of admission. He now states that his pcp prescribed insulin, instructing him to take 16 units of basal insulin nightly and a total of 16 units of pre-meal insulin. He reports that he discontinued ozempic and started on the insulin regime 3 weeks ago. He also states that he has been checking his blood glucose at home using finger-stick measurements, which he reports have been around 446 mg/dL, Given that his current HbA1c is >14%, the reliability of his reported history is questionable. This morning, his blood glucose level was 148. His HbA1c was >14, beta hydroxybutyrate was 1.6, VBG 7.43, lactic acid 1.8. He noted that he has intermittent bright red bloody stools and he received colonoscopy showing internal hemorrhoids.. His glucose was controlled with insulin degludec 18 units daily and Premeal insulin lispro 3 units. Overnight he did not receive any insulin on SSI. Patient has discontinued IVF LR 75 mL/h. Will continue to monitor patient's lab and if stable, patient will likely get discharged within next 24 to 48 hours. No Overnight events. Labs reviewed and patient examined at the bedside. Denies chest pain, palpation, SOB, abdominal pain, N/V, fevers or chills. Exam Vital Signs Temp Pulse Resp BP Pulse Ox O2 Del Method O2 Flow Rate 98.0 F 82 22 H 142/82 H 94 L Room Air 1 01/30/25 12:00 01/30/25 12:00 01/30/25 12:00 01/30/25 12:00 01/30/25 12:00 01/30/25 12:00 01/29/25 12:08 Narrative Exam General: Slight distress, well nourished, AAO x3 Eye: PERRL, EOMI, normal conjunctiva, no scleral icterus HENT: Normocephalic, atraumatic, hearing intact to conversation at normal volume, moist oral mucosa Neck: Supple, non-tender, no JVD, no lymphadenopathy Lungs: Non-labored respirations, symmetric chest rise, Clear to auscultate bilaterally, No wheezing, rhonchi, crackles Heart: Peripheral pulses intact bilaterally, Regular Rate and Rhythm. Abdomen: Soft, non-distended, no palpable masses, diffuse abdominal tenderness Musculoskeletal: Normal range of motion and strength, No cyanosis or edema, No visible joint swelling Skin: Skin is warm, dry, no rashes or lesions. Psychiatric: Cooperative, appropriate mood and affect, Awake and alert, not agitated Neuro: Cranial nerves II-XII grossly intact. Strength 5/5 throughout. Sensations intact to light touch. Objective Labs 01/30/25 05:25 01/30/25 05:25 Labs: Laboratory Results - last 24 hr 01/29/25 01/29/25 01/29/25 14:48 17:26 17:26 WBC RBC Hgb Hct MCV MCH MCHC RDW Std Deviation Plt Count Neut % (Auto) Lymph % (Auto) [place] % (Auto) Eos % (Auto) Baso % (Auto) Neut # (Auto) Lymph # (Auto) [place] # (Auto) Eos # (Auto) Baso # (Auto) Immature Gran # (Auto) Absolute Nucleated RBC Immature Gran % Nucleated RBC % PT INR APTT VBG pH 7.37 VBG pCO2 35 L VBG pO2 48 VBG O2 Sat (Ryann) 86 L D VBG Base Excess 20 H Sodium 142 142 Potassium 4.8 D 4.3 D Chloride 105 106 Carbon Dioxide 19.4 L 18.3 L Anion Gap 18 H 18 H BUN 16 18 Creatinine 1.2 1.1 Estim Creat Clear Calc 53.5 L 61.7 eGFR > 60 > 60 BUN/Creatinine Ratio 13 16 Glucose 399 H D [address] Glu mg/dL Hemoglobin A1c Calculated Osmolality 301 H 301 H Lactic Acid 1.8 Calcium 9.4 9.0 Corrected Calcium 9.4 9.0 Phosphorus 3.0 Magnesium 1.8 Total Bilirubin 0.7 AST 21 ALT 33 Alkaline Phosphatase 142 H D Troponin I < 0.020 Total Protein 6.2 Albumin 4.0 D 4.0 Globulin 2.2 L Albumin/Globulin Ratio 1.8 Triglycerides 125 Cholesterol 167 LDL Cholesterol, Calc 102 HDL Cholesterol 40 Cholesterol/HDL Ratio 4.2 Lipase Cancelled 43 Beta-Hydroxybutyrate/Acetoacetate 01/29/25 01/30/25 01/30/25 21:48 01:48 05:25 WBC 7.9 RBC 4.47 L Hgb 13.4 L D Hct 38.8 L MCV 87 MCH 30.0 MCHC 34.5 RDW Std Deviation 38.5 Plt Count 183 Neut % (Auto) 51 Lymph % (Auto) 39 [place] % (Auto) 8 Eos % (Auto) 2 Baso % (Auto) 1 Neut # (Auto) 4.0 Lymph # (Auto) 3.1 [place] # (Auto) 0.6 Eos # (Auto) 0.1 Baso # (Auto) 0.0 Immature Gran # (Auto) 0.02 H Absolute Nucleated RBC 0.00 Immature Gran % 0 Nucleated RBC % 0 PT 10.3 INR 1.0 APTT 24.9 VBG pH 7.41 7.43 7.43 VBG pCO2 36 39 39 VBG pO2 52 54 51 VBG O2 Sat (Ryann) 88 L 90 L 89 L VBG Base Excess -1 1 2 Sodium 141 144 144 Potassium 4.0 3.6 3.4 Chloride 107 109 H 109 H Carbon Dioxide 20.4 24.3 24.9 Anion Gap 14 11 10 BUN 16 20 14 Creatinine 1.0 0.9 0.9 Estim Creat Clear Calc 67.9 75.4 74.9 eGFR > 60 > 60 > 60 BUN/Creatinine Ratio 16 22 H 16 Glucose 305 H D 174 H D [address] Glu mg/dL 355 H Hemoglobin A1c > 14.0 H Calculated Osmolality 293 293 290 Lactic Acid Calcium 8.9 8.5 9.0 Corrected Calcium 9.0 8.8 9.5 Phosphorus 2.4 2.8 Cancelled Magnesium 1.8 1.7 1.6 Total Bilirubin 0.7 AST 32 ALT 37 Alkaline Phosphatase 122 H D Troponin I Total Protein 5.7 Albumin 3.9 3.6 3.4 Globulin 2.3 Albumin/Globulin Ratio 1.5 Triglycerides Cholesterol LDL Cholesterol, Calc HDL Cholesterol Cholesterol/HDL Ratio Lipase Beta-Hydroxybutyrate/Acetoacetate 1.6 H ABG Interpretation ABG results: 01/29/25 01/29/25 01/29/25 11:46 17:26 21:48 VBG pH 7.32 L 7.37 7.41 VBG pCO2 36 35 L 36 VBG pO2 36 48 52 VBG Base Excess -7 L 20 H -1 01/30/25 01/30/25 01:48 05:25 VBG pH 7.43 7.43 VBG pCO2 39 39 VBG pO2 54 51 VBG Base Excess 1 2 Quality Measures Quality Measures none Assessment & Plan Assessment Current Active Medications: Generic Name Dose Route Start Last Admin Trade Name Freq PRN Reason Stop Dose Admin Acetaminophen 650 mg 01/29/25 17:15 01/30/25 15:03 Acetaminophen 325 Mg Tablet PO 02/28/25 17:14 650 mg Q6H PRN Administration Fever >101.5 Dextrose 25 ml 01/29/25 17:25 Dextrose 50%-Water Inj 50 Ml Syringe IV 02/28/25 17:24 Q15MIN PRN BG 50-70 responsive npo pt Dextrose 50 ml 01/29/25 17:25 Dextrose 50%-Water Inj 50 Ml Syringe IV 02/28/25 17:24 Q15MIN PRN BG <50 OR BG <70 & pt unresponsive Glucagon 1 mg 01/29/25 17:25 Glucagon Inj 1 Mg Vial IM Q15MIN PRN BG <70, and no IV access Heparin Sodium (Porcine) 5,000 unit 01/29/25 17:30 01/30/25 13:54 Heparin Sod Inj 5000 Unit/Ml Vial SC 02/12/25 17:29 5,000 unit Q8HR TAMI Administration Lactated Ringer's 1,000 mls @ 100 mls/hr 01/29/25 16:45 01/30/25 13:54 Lactated Ringers IV 02/28/25 16:44 100 mls/hr .Q10H [facility]I Administration Insulin Degludec 18 unit 01/29/25 17:25 01/30/25 08:36 Insulin Degludec 5 Unit/0.05 Ml (Per 5 Units) SC 02/28/25 17:24 18 unit QDAY [facility]I Administration Insulin Human Lispro 3 unit 01/30/25 07:30 01/30/25 11:20 Insulin Lispro (Admelog) 1 Unit/0.01 Ml Unit SC 03/01/25 07:29 3 unit TIDWM [facility]AMI Administration Insulin Human Lispro 0 unit 01/30/25 11:30 01/30/25 11:22 Insulin Lispro (Admelog) 1 Unit/0.01 Ml Unit SC 03/01/25 11:29 4 unit ACHS TAMI Administration Protocol Labetalol HCl 10 mg 01/29/25 18:07 Labetalol Inj 5 Mg/Ml Vial 20 Ml IVP 02/28/25 18:14 Q6HR PRN Hypertensive Emergency Ondansetron HCl 4 mg 01/29/25 17:15 Ondansetron Inj 2 Mg/Ml Inj 2 Ml IVP 02/28/25 17:14 Q6H PRN NAUSEA OR VOMITING Protocol Pantoprazole Sodium 40 mg 01/30/25 09:00 01/30/25 08:35 Pantoprazole Inj 40 Mg Vial IVP 03/01/25 08:59 40 mg QDAY [facility]AMI Administration Sennosides 1 tab 01/29/25 17:30 01/30/25 08:35 Senna Tablet PO 02/28/25 17:29 1 tab QDAY [facility]I Administration Protocol Plan Dedrick Benjamin is 64y male with PMH of HTN, HLD, and Diabetes, presented to the ED on 01/29/2025 for worsening headache, fatigue and polydipsia. Patient will be admitted for managment of mild DKA. #Diabetic Ketoacidosis #HAGMA #Insulin Dependent Type 2 Diabetes -On admission, Glucose level of 585, Acidosis (VBG pH 7.32, AG 18, HCO3:15.9). Ketosis (beta hydroxybutyrate 6.1) -Bedside Glucose level currently downtrending. Currently 399 -UA clear yellow urine,: Urine glucose 4+, urine ketones 2+, urine blood negative, urine protein negative, urine nitrate negative, urine leukocyte esterase negative, urine WBC 0, urine bacteria none. Urine yeast present. -1 month of worsening headache and fatigue. -Per patient, he does not take insulin or any other medications, except ozempic which he has been using it everyday for last month. However, his previous records show that he was prescribed multiple other medications. -HbA1c was 6.7 on 04/28/2024 and 11.1 on 01/03/2025. -HbA1c was >14 Plan: -Glucose check ACHS -Insulin Degludec 18 units qd, Insulin lispro 3 units SC TIDWM -SSI SC ACHS -HbA1c, PTT, PT w/INR pending, Mag q4hr, Phos q4hr, Renal function panel q4hr, VBG q4hr, -Neuro check q4hr -boilermaker fitter q4hr -Daily weight, Strint I&Os -Dietitian referral -Diet carb consistent diet. #HTN -Labetalol 10mg IV prn #Hx of HLD -Triglyceride 125, cholesterol 167, LDL 102, HDL 40, lipase 43. Disposition: Tele Diet: Diet carb consistent diet. GI prophylaxis: IV protonix 40mg qd DVT prophylaxis: Heparin 5000 units SC q8hr Code: FULL Assessment and plan discussed with my attending physician Dr. Bangura and Dr. Boyd (PGY-2) Dr. Doherty (PGY-1) - Internal medicine resident Attending Provider Attestation/Addendum I have seen and examined the patient. I was physically present for the reinoso portions of the services provided including history, physical exam, diagnosis, treatment plans and orders. I agree with assessment and plan of care as documented by residents. Patient seen and examined at bedside this morning. Appears comfortable and denies any new complaints. Blood glucose has improved this morning with degludec 20 and insulin lispro 3 units with meals. Also has sliding scale on board. Repleted potassium and magnesium. WBC count has improved, hemoglobin A1c noted to be more than 14. Beta-hydroxybutyrate, anion gap and bicarbonate level has improved. We will monitor his glucose level closely and adjust his insulin regimen, if remains stable, we will plan for discharge in next 24 to 48 hours. Even though this this note was carefully revised there may still be minor errors in brass wind instrument maker due to voice recognition software. Reji Bangura MD
--- NOTE | 2025-01-30 15:34 | PC.CC ---
Notified by MESHA Abad, of need for PA for [employer] Jacob 3 Plus sensors and Jacob 3 Carlyle. Submitted and approved through 01/30/26. Updated [facility].
[2025-01-31] VITALS: BP 133/78; PULSE 67; RESP 18; TEMP 36.8; O2SAT 96
[2025-01-31] MEDS: RINGERS LACTATED 1000 ML 1,000 ML 100 ML IV (00:45)
[2025-01-31 04:00] VITALS: BP 145/88; PULSE 69; RESP 19; TEMP 36.6; O2SAT 98
[2025-01-31 05:06] LABS: Basophils # (Auto) 0.1 Thou/mm3 (0.0-0.2); Basophils % (Auto) 1 % (0-2.5); Eosinophils # (Auto) 0.2 Thou/mm3 (0.0-0.5); Eosinophils % (Auto) 2 % (0-10); Hematocrit 37.6 % (41.0-53.0); Hemoglobin 13.1 g/dL (13.5-16.0); Immature Granulocytes Auto 0.02 Thou/mm3 (0.00-0.00); Lymphocytes # (Auto) 3.5 Thou/mm3 (1.0-4.8); Lymphocytes % (Auto) 40 % (10-50); Mean Corpuscular HGB Conc 34.8 g/dl (31.0-37.0); Mean Corpuscular Hemoglobin 30.0 pg (25.0-35.0); Mean Corpuscular Volume 86 fL (80-100); Monocytes # (Auto) 0.8 Thou/mm3 (0.0-0.8); Monocytes % (Auto) 9 % (0-12); Neutrophils # (Auto) 4.3 Thou/mm3 (1.8-7.7); Neutrophils % (Auto) 49 % (37-80); Nucleated Red Blood Cell # 0.00 Thou/mm3 (0.00-0.00); Nucleated Red Blood Cell % 0 /100 WBC (0); Platelet Count 168 Thou/mm3 (140-440); RDW Standard Deviation 37.5 fL (35.1-43.9); Red Blood Count 4.37 Miln/mm3 (4.50-5.90); White Blood Count 8.8 Thou/mm3 (3.8-10.6)
[2025-01-31 05:25] LABS: Alanine Aminotransferase 57 U/L (10-49); Albumin, Serum 3.3 gm/dL (3.4-4.8); Albumin/Globulin Ratio 1.7 (1.2-2.2); Alkaline Phosphatase 110 U/L (46-116); Anion Gap 9 (7-16); Aspartate Amino Transferase 53 U/L (0-34); BUN/Creatinine Ratio 13 Ratio (12-20); Bilirubin,Total 0.6 mg/dL (0.3-1.2); Blood Urea Nitrogen 12 mg/dL (9-23); Calcium 8.2 mg/dL (8.3-10.6); Calcium (Corrected) 8.8 mg/dL (8.5-10.1); Carbon Dioxide 23.9 mMol/L (20.0-31.0); Chloride 106 mMol/L (98-107); Creatinine (Component) 0.9 mg/dL (0.6-1.3); Estimated Creatinine Clearance 73.3 mL/min (>60); Globulin 1.9 gm/dL (2.3-3.5); Glucose 152 mg/dL (74-106); Magnesium 1.7 mg/dL (1.6-2.6); Osmolality,Calculated 280 (275-295); Phosphorous 2.7 mg/dL (2.4-5.1); Potassium 3.5 mMol/L (3.4-5.1); Sodium 139 mMol/L (136-145); Total Protein 5.2 gm/dL (5.7-8.2); eGFR > 60 See Note
[2025-01-31] MEDS: HEPARIN SOD INJ 5000 UNIT/ML VIAL SC (05:37)
[2025-01-31 07:03] VITALS: PULSE 72; RESP 20; RESP 98
[2025-01-31] MEDS: INSULIN LISPRO (AdmeLOG) 1 UNIT/0.01 ML UNIT 3 UNIT SC (07:18)
[2025-01-31] MEDS: INSULIN LISPRO (AdmeLOG) 1 UNIT/0.01 ML UNIT SC ×2 (07:19→11:50)
--- NOTE | 2025-01-31 07:49 | CHAP ---
Patient ws visited by a Spiritual Care Volunteer on 01/30/2025 between 0900 and 1200 and received comfort, encouragement and/or prayer.
[2025-01-31 07:58] VITALS: BP 152/94; PULSE 70; RESP 19; TEMP 36.1; O2SAT 98
--- NOTE | 2025-01-31 07:59 | ESDS_ITS ---
<Statement entered by Radha Villareal MD - 02/01/25 05:46> Patient was seen and examined by me personally. I have reviewed the below documentation by the team resident and agree with its findings. Discharge plan was discussed with the attending, Dr. Skinny Orlando MD Internal Medicine, PGY-2 Planned Discharge Date 01/31/25 DS: Providers Provider Date of admission: 01/29/25 17:15 Primary care physician: Deep Saucedo MD Admitting Provider: Reji Bangura MD Attending Provider on Admission: Reji Bangura MD Consults: 01/29/25 17:25 Referral Registered Dietitian Routine Comment: Referral Registered Dietitian Stat Comment: Attending Provider on DC: Skinny Doherty DO Discharging Provider: Skinny Doherty DO DS: Diagnosis Problem List Completed Was Problem List Reviewed/Reconciled?: Yes Hospital Course Hospital Course Hospital course: Summary: Dedrick Benjamin is 64y male with PMH of HTN, HLD, and Diabetes, presented to the ED on 01/29/2025 for worsening headache, fatigue and polydipsia. Patient will be admitted for managment of mild DKA. Patient received IV maintenance fluid LR 75ml/hr, and insulin regimen. Patient's HbA1c was >14. His glucose, anion gap, beta hydroxybutyrate decreased. VBG pH nomalized. His symptoms improved significantly. Patient's labs and vitals were stable. Patient was discharged. ED course: Vitals: BP 174/81, GA 77, RR 15, temperature 98.0 F, 99% O2 saturation on room air. Labs: WBC 11.9, Hgb 16.2, sodium 135, potassium 5.3, HCO3 15.9, anion gap 18, Cr: 0.6, eGFR 48, glucose 585, lactic acid 1.8, corrected calcium 10.0, magnesium 2.2, ALP 170, troponin<0.02, BNP<20, albumin 4.7, beta hydroxybutyrate 6.1. UA: clear yellow urine,: Urine glucose 4+, urine ketones 2+, urine blood negative, urine protein negative, urine nitrate negative, urine leukocyte esterase negative, urine WBC 0, urine bacteria none. Urine yeast present. VBG pH 7.32, VBG pCO2 36, VBG pCO2 36. In ED, patient was given IV bolus LR 1 L x 3. Hospital Course: Upon admission to the hospital, patient started on IVF LR 75 mL/h, insulin regimen (Insulin Degludec 18 units qd, Insulin lispro 3 units q4hr.), glucose checks every 4 hour, insulin sliding scale every 4 hour, neurocheck every 4 hour, cardiac monitoring every 4 hour. His HbA1c was >14 (HbA1c was 6.7 on and 11.1 on 01/03/2025. ). Patient's glucose level had a increasing trend throughout the day with meals. On 01/31, his final insulin regimen was insulin degludec 20 units daily, Premeal insulin lispro 8 units 3 times daily. Patient's glucose was initially 585 on 01/30 downtrended to 240, and on 01/31 decreased to 182. Anion gap was initially 18, decreased to 9 on 01/31. Beta hydroxybutyrate was 6.1 and decreased to 1.6. Patient's initial symptoms of headache, fatigue, diffuse abdominal pain, and polydipsia improved significantly. His hypertension was controlled with Labetalol 10mg IV prn. Patient's labs and vitals were stable. Patient was discharged. During the hospital stay, patient provided information that differs significantly from what he reported at the time of admission about his medication administration history. Given his HbA1c is >14%, his diabetes is currently uncontrolled and requires more strict control of his diet and insulin regime. #Diabetic Ketoacidosis #HAGMA #Insulin Dependent Type 2 Diabetes #HTN #Hx of HLD Instructions: You have been started on the following medication: - Insulin degludec 20 units daily and lispro 8 units TIDWM, titrate regimen outpatient. - Take Atorvastatin 40mg daily for high cholestrol and losartan 25mg daily for High Blood Pressure. Please continue taking all other medications as previously prescribed. Please follow up with your primary doctor in 7-10 days. Return to the ED if you develop new or worsening symtpoms. Assessment and plan discussed with my attending physician Dr. Bangura and Dr. Villareal (PGY-2) Dr. Doherty (PGY-1) - Internal medicine resident Status at Discharge Overall status at discharge: patient is progressing back to baseline Time Spent with Patient Time attestation: Total time spent providing and/or coordinating discharge services: 35 minutes Time spent: Greater than 30 minutes Exam Vital Signs Temp Pulse Resp BP Pulse Ox O2 Del Method O2 Flow Rate 97.0 F 70 19 152/94 H 98 Room Air 1 01/31/25 07:58 01/31/25 07:58 01/31/25 07:58 01/31/25 07:58 01/31/25 07:58 01/31/25 07:58 01/31/25 00:00 Narrative Exam General: Slight distress, well nourished, AAO x3 Eye: PERRL, EOMI, normal conjunctiva, no scleral icterus HENT: Normocephalic, atraumatic, hearing intact to conversation at normal volume, moist oral mucosa Neck: Supple, non-tender, no JVD, no lymphadenopathy Lungs: Non-labored respirations, symmetric chest rise, Clear to auscultate bilaterally, No wheezing, rhonchi, crackles Heart: Peripheral pulses intact bilaterally, Regular Rate and Rhythm. Abdomen: Soft, non-distended, no palpable masses, diffuse abdominal tenderness Musculoskeletal: Normal range of motion and strength, No cyanosis or edema, No visible joint swelling Skin: Skin is warm, dry, no rashes or lesions. Psychiatric: Cooperative, appropriate mood and affect, Awake and alert, not agitated Neuro: Cranial nerves II-XII grossly intact. Strength 5/5 throughout. Sensations intact to light touch. Discharge Plan Plan Patient Disposition: HOME (Self Care) Patient condition on transfer: Stable Care Plan Goals: You have been started on the following medication: - Insulin degludec 20 units daily and lispro 8 units TIDWM, titrate regimen outpatient. - Take Atorvastatin 40mg daily for high cholestrol and losartan 25mg daily for High Blood Pressure. Please continue taking all other medications as previously prescribed. Please follow up with your primary doctor in 7-10 days. Return to the ED if you develop new or worsening symtpoms. Prescriptions/Referrals Prescriptions/Med Rec: New (DME) FreeStyle Jacob 3 Plus Sensor Device See Rx Instructions .Route Qty: 1 0RF Rx Instructions: As directed (DME) FreeStyle Jacob 3 [place] Misc See Rx Instructions .Route Qty: 1 0RF Rx Instructions: As directed insulin degludec 100 unit/mL (3 mL) insulin pen 20 unit subcut QDAY Qty: 15 0RF losartan 25 mg tablet 25 mg PO QDAY Qty: 30 0RF insulin lispro [Humalog KwikPen Insulin] 100 unit/mL insulin pen 8 unit subcut TIDWM 30 Days Qty: 15 0RF (DME) pen needle, diabetic [CareTouch Pen Needle] 31 gauge x 1/4 needle See Rx Instructions .Route Qty: 100 0RF Rx Instructions: As directed Continued acetaminophen 500 mg tablet 500 mg PO Q6H PRN (Reason: pain) tamsulosin [Flomax] 0.4 mg capsule 0.4 mg PO Q12H atorvastatin 40 mg tablet 40 mg PO .qhs 30 Days Qty: 30 0RF Discontinued celecoxib 100 mg capsule 100 mg PO QDAY Patient Comments: TOME 1 C PSULA POR V A ORAL DOS VECES AL D A POR 7 D CUANDO SEA NECESARIO Referrals: Deep Saucedo MD [Primary Care Provider, Family Practice] Patient/Caregiver Discharge Instructions Education Materials: Diabetes and Heart Disease, Diabetes and Kidney Disease, Diabetes and High Blood Pressure Print Language: Macanese Stand Alone Forms: Mar Award Info., Patient Portal Info Letter Discharge Order Discharge Orders: Discharge (Routine); Ordered 01/31/25 Ordered By: Radha Villareal Quality Discharge Quality Measures VTE prophylaxis MD Attestestation MD Attestation I have seen and examined the patient. I was physically present for the reinoso portions of the services provided including history, physical exam, diagnosis, treatment plans and orders. I agree with assessment and plan of care as documented by residents. Even though this this note was carefully revised there may still be minor errors in colorectal surgeon due to voice recognition software. Reji Bangura MD
--- NOTE | 2025-01-31 08:42 | PC.SS ---
Follow up note: Pt is dc for today.
[2025-01-31] MEDS: INSULIN DEGLUDEC 5 UNIT/0.05 ML (PER 5 UNITS) 20 UNIT SC (08:45)
[2025-01-31] MEDS: MAGNESIUM OXIDE 400 MG TABLET PO (08:46)
[2025-01-31] MEDS: POTASSIUM PHOS 22.5 MMOL in SODIUM CHLORIDE 0.9% 500 ML 500 ML 82.778 MMOL IV (08:47)
--- NOTE | 2025-01-31 09:02 | PC.SS ---
Late note 01-30-25: SS met with patient regarding his d/c plan. Pt is alert/oriented. Pt was admitted for. Pt confirmed demographic and contact information is correct on facesheet. Pt resides with. Pt ambulates independently without assistance or DME. Pt is ok with all ADLs. Patient?s pharmacy of choice is. Pt named his brother, Rod Harrison medical decision maker if he is unable. Patient?s choice is to return home upon d/c. Pt states he is diabetic, has glucometer, and test strips. Pt is not on dialysis. Pt followed up with PCP 3 weeks ago. D/C plan: Return home Next of Kin: Rod Harrison, brother, phone# [phone] [facility] Address: Correct on facesheet
[2025-01-31 11:07] VITALS: BP 141/88; PULSE 67; RESP 20; TEMP 36.2; O2SAT 96
[2025-01-31] MEDS: INSULIN LISPRO (AdmeLOG) 1 UNIT/0.01 ML UNIT 8 UNIT SC (11:51)
--- NOTE | 2025-01-31 12:18 | PC.NURSE ---
Patient is eating lunch. As soon as he is done he will notify me so he can sign discharge papers.
== END 2025-01-31 13:02 | disposition home or self-care (01) | DRG 420 ==
LOC: SERX 16:18 → SERHOLD 17:38 → S2NX 21:11 → S3NX 01-30 18:12
PROVIDERS: Nurse Practitioner Family; Registered Nurse General Practice; Admitting Provider Student in an Organized Health Care Education/Training Program; Emergency Provider Emergency Medicine; PCP Family Medicine; Visit Provider Student in an Organized Health Care Education/Training Program
DX: E11.10 Type 2 diabetes mellitus with ketoacidosis without coma (principal); R07.2 Precordial pain; E78.5 Hyperlipidemia, unspecified; I10 Essential (primary) hypertension; Z79.4 Long term (current) use of insulin; Z79.899 Other long term (current) drug therapy
CPT/HCPCS: 36415; 71045; 80053; 80061; 80069; 80307; 81001; 82010; 82803; 83036; 83605; 83690; 83735; 83880; 84100; 84439; 84443; 84484; 85025; 85610; 85730; 87040; 93005; 94762; 96360; 96361; 96374; 99283; J1644; J1815; J2470; J3475; J7120; J7999; A9270